=== PATIENT | female | born 1975 | race Caucasian/White ===

== ENCOUNTER 2016-08-13 22:15 | Emergency (ER) | payer SELFPAY ==
[~2016-08-13 22:15] MED LIST: FLUO40CA9 PO; RISP4TAB35 PO
[2016-08-13 22:18] VITALS: BP 160/56
--- NOTE | 2016-08-13 22:37 | PHYS DOC ---
Past Medical History Past Medical History: Bipolar, GERD, Schizophrenia Additional Past Medical Histor: PTSD Past Surgical History: Tubal ligation Alcohol Use: None Drug Use: Marijuana, Methadone Social History Narrative: LAST USED METH X 3 DAYS AGO Adult General Chief Complaint Chief Complaint: MULTIPLE COMPLAINTS [facility] HPI Patient is a 41 year old female presents emergency department stating that she' s had a 3 day history of cough congestion with right sided facial pressure. Patient states that her temperature was 102.9 at home in which she had taken either Tylenol or ibuprofen for 2 hours prior to arrival. States that she has been coughing up yellow mucus secretions. She states that she short of air whenever she is walking. Patient's heart rate at the current time is 103. Patient is afebrile here in the emergency department. Patient does has a smoking history. Review of Systems Review of Systems Constitutional: hx fever Eyes: Denies change in visual acuity, redness, or eye pain [] HENT: nasal congestion and sore throat [] Respiratory: cough and shortness of breath [] Cardiovascular: No additional information not addressed in HPI [] GI: Denies abdominal pain, nausea, vomiting, bloody stools or diarrhea [] : Denies dysuria or hematuria [] Musculoskeletal: Denies back pain or joint pain [] Integument: Denies rash or skin lesions [] Neurologic: Denies headache, focal weakness or sensory changes [] Allergies Allergies Allergies Coded Allergies Type Severity Reaction Last Updated Verified No Known Drug Allergies 07/03/13 No Physical Exam Physical Exam Constitutional: Well developed, well nourished, no acute distress, non-toxic appearance. [] HENT: Normocephalic, atraumatic, bilateral external ears normal, oropharynx moist, no oral exudates, nose normal. Bilateral TM normal, throat with redness noted, no erythematous noted. No exudate noted. Patient with right frontal and maxillary sinus tenderness noted Eyes: PERRLA, EOMI, conjunctiva normal, no discharge. [] Neck: Normal range of motion, no tenderness, supple, no stridor. [] Cardiovascular:Heart rate regular rhythm, no murmur [] Lungs & Thorax: Bilateral breath sounds clear to auscultation [] Skin: Warm, dry, no erythema, no rash. [] Back: No tenderness Extremities: No tenderness, no cyanosis, no clubbing, ROM intact, no edema. [] Neurologic: Alert and oriented X 3, normal motor function, normal sensory function, no focal deficits noted. [] Psychologic: Affect normal, judgement normal, mood normal. [] Current Patient Data Vital Signs Vital Signs Date Time Temp Pulse Resp B/P Pulse Ox O2 Delivery O2 Flow Rate FiO2 08/13/16 22:18 98.8 106 22 100 Room Air 98.8 Lab Values Laboratory Tests Test 08/13/16 22:30 Influenza Type A Antigen Negative (NEGATIVE) Influenza Type B Antigen Negative (NEGATIVE) EKG EKG [] Radiology/Procedures Radiology/Procedures [] Course & Med Decision Making Course & Med Decision Making Pertinent Labs and Imaging studies reviewed. (See chart for details) Influenza swabs are negative. Patient will be treated for sinusitis infection. Patient will be provided with a prescription for prednisone to help with shortness of air difficulty breathing as she has been having a cough that is productive. She'll be provided with Augmentin. Signs and symptoms to return back to emergency department as been provided. Patient will be discharged home in stable condition. [] Dragon Disclaimer Dragon Disclaimer This electronic medical record was generated, in whole or in part, using a voice recognition dictation system. Departure Departure Impression: Primary Impression: Sinusitis Disposition: 01 HOME, SELF-CARE Condition: STABLE Referrals: UNKNOWN PCP NAME (PCP) Patient Instructions: Sinusitis, [id number] Additional Instructions: Activity as tolerated. Medications as prescribed. Drink plenty of fluids. Follow-up the primary care physician in the next 3-5 days. Return back to emergency prior signs and symptoms of become worse. Scripts Prednisone 20 Mg [id number] Mg PO DAILY #14 TAB Prov:JIMMY BRADY APRN 08/13/16 Amoxicillin/Potassium Clav (Augmentin 875-125 Tablet)1 Each Tablet1 Tab PO BID # 20 TAB Prov:JIMMY BRADY APRN 08/13/16 JIMMY BRADY APRN August 13, 2016 22:37
[2016-08-13 22:56] LABS: OBC FLU VALID
[2016-08-13] MEDS ORDERED: PRED20TA PO (23:01)
[2016-08-13] MEDS ORDERED: AMOX1TAB61 PO (23:01)
== END 2016-08-13 23:10 | disposition home or self-care (01) ==
LOC: ER 22:15
DX: J32.9 Chronic sinusitis, unspecified (principal); F20.9 Schizophrenia, unspecified; F43.10 Post-traumatic stress disorder, unspecified; K21.9 Gastro-esophageal reflux disease without esophagitis; F31.9 Bipolar disorder, unspecified; F12.10 Cannabis abuse, uncomplicated; F11.10 Opioid abuse, uncomplicated; Z87.891 Personal history of nicotine dependence
CPT/HCPCS: 87804; 99284

== ENCOUNTER 2016-10-31 13:25 | Emergency (ER) | payer SELFPAY ==
[~2016-10-31] VITALS: Ht 167.6 cm; Wt 72.6 kg
[~2016-10-31 13:25] MED LIST changes: +AMOX1TAB61 PO; +PRED20TA PO
[2016-10-31 13:47] VITALS: BP 142/86
[2016-10-31] MEDS ORDERED: PERM60CR12 TP (14:18)
[2016-10-31] MEDS ORDERED: PRED20TA PO (14:18)
--- NOTE | 2016-10-31 14:19 | PHYS DOC ---
Past Medical History Past Medical History: Bipolar, GERD, Schizophrenia Additional Past Medical Histor: PTSD Past Surgical History: Tubal ligation Alcohol Use: Occasionally Drug Use: Marijuana, Methadone, Methamphetamine Adult General Chief Complaint Chief Complaint: SKIN RASH/ABSCESS [facility] HPI Patient is a 41 year old female presents to emergency department stating that she's had this rash on her arms for approximately a week. She states she had been placing antibiotic soap on the area in which seemed to have gone away but now its back. She states that they've been having bedbugs in their home in which they have been having problems getting rid of it. She denies any fever, chills or any nausea vomiting. She denies any drainage coming from the sites. Review of Systems Review of Systems Constitutional: Denies fever or chills [] Eyes: Denies change in visual acuity, redness, or eye pain [] HENT: Denies nasal congestion or sore throat [] Respiratory: Denies cough or shortness of breath [] Cardiovascular: No additional information not addressed in HPI [] GI: Denies abdominal pain, nausea, vomiting, bloody stools or diarrhea [] : Denies dysuria or hematuria [] Musculoskeletal: Denies back pain or joint pain [] Integument: rash denies skin lesions [] Neurologic: Denies headache, focal weakness or sensory changes [] Endocrine: Denies polyuria or polydipsia [] Allergies Allergies Allergies Coded Allergies Type Severity Reaction Last Updated Verified No Known Drug Allergies 07/03/13 No Physical Exam Physical Exam Constitutional: Well developed, well nourished, no acute distress, non-toxic appearance. [] HENT: Normocephalic, atraumatic, bilateral external ears normal, oropharynx moist, no oral exudates, nose normal. [] Eyes: PERRLA, EOMI, conjunctiva normal, no discharge. [] Neck: Normal range of motion, no tenderness, supple, no stridor. [] Cardiovascular:Heart rate regular rhythm Lungs & Thorax: No respiratory distress noted Skin: Warm, dry, no erythema, patient with a raised rash noted throughout the bilateral upper extremities. The areas appear to be a pinpoint type white rash. Back: No tenderness Extremities: No tenderness, no cyanosis, no clubbing, ROM intact, no edema. [] Neurologic: Alert and oriented X 3, normal motor function, normal sensory function, no focal deficits noted. [] Psychologic: Affect normal, judgement normal, mood normal. [] Current Patient Data Vital Signs Vital Signs Date Time Temp Pulse Resp B/P (MAP) Pulse Ox O2 Delivery O2 Flow Rate FiO2 10/31/16 13:47 99.3 103 18 97 Room Air 99.3 EKG EKG [] Radiology/Procedures Radiology/Procedures [] Course & Med Decision Making Course & Med Decision Making Pertinent Labs and Imaging studies reviewed. (See chart for details) Patient was encouraged to keep the areas clean and dry wash it with soap and water. She will also be provided with a prescription for permethrin cream in which she was instructed will cause the areas to look worse before they start looking better. Also instructed patient to keep the areas clean and dry. Also instructed patient to use the cream on a weekly basis as needed. Also spoke with patient regards to washing all of the bed linens and everything in hot water. Patient agrees with discharge instructions treatment regimens and follow- up recommendations. Signs and symptoms to return back to emergency department as been provided. [] Dragon Disclaimer Dragon Disclaimer This electronic medical record was generated, in whole or in part, using a voice recognition dictation system. Departure Departure Impression: Primary Impression: Contact dermatitis Disposition: 01 HOME, SELF-CARE Condition: STABLE Referrals: UNKNOWN PCP NAME (PCP) Patient Instructions: Bedbugs, [id number] Additional Instructions: Keep the areas clean and dry. Clean the sites with soap and water. Make sure you wash all urine and it in hot water. Medication as prescribed. Follow-up to primary care physician next 3-5 days. Return back to emergency prior signs symptoms of become worse. Scripts Prednisone (PREDNISONE) 20 Mg Tablet 40 MG PO DAILY, #14 TAB Prov: JIMMY BRADY APRN 10/31/16 Permethrin (PERMETHRIN) 60 Gm Cream..g. 1 ERICA TP ONCE, #60 GM 1 Refill Prov: JIMMY BRADY APRN 10/31/16 JIMMY BRADY APRN Oct 31, 2016 14:19
[2016-10-31] MEDS ORDERED: CLOB118S TP (14:23)
== END 2016-10-31 14:29 | disposition home or self-care (01) ==
LOC: ER 13:25
DX: L25.9 Unspecified contact dermatitis, unspecified cause (principal); K21.9 Gastro-esophageal reflux disease without esophagitis; F20.9 Schizophrenia, unspecified; F43.10 Post-traumatic stress disorder, unspecified; F31.9 Bipolar disorder, unspecified; F12.10 Cannabis abuse, uncomplicated; F11.10 Opioid abuse, uncomplicated; F15.10 Other stimulant abuse, uncomplicated; Z98.51 Tubal ligation status
CPT/HCPCS: 99283

== ENCOUNTER 2016-11-25 01:25 | Inpatient (IN) | payer SELFPAY ==
[~2016-11-25] VITALS: Ht 167.6 cm; Wt 75.8 kg
[2016-11-25] VITALS (27 sets, daily range): BP systolic 66–122; BP diastolic 32–77
[~2016-11-25 01:25] MED LIST changes: +CLOB118S TP; +PERM60CR12 TP
[2016-11-25] MEDS ORDERED: IV NORMAL SALINE 1000ML BAG 1,000 ML IV ONE ×3 (02:15→15:00)
[2016-11-25] MEDS ORDERED: ONDANSETRON PF 4 MG/2 ML VIAL. IV ONE (02:15)
[2016-11-25 02:54] LABS: BILIRUBIN,URINE NEGATIVE (NEG); GLUCOSE,URINE NEGATIVE (NEG); NITRITE,URINE NEGATIVE (NEG); PH,URINE 5.5; PROTEIN,URINE NEGATIVE (NEG-TRACE); UROBILINOGEN,URINE 0.2 mg/dL (0.2 mg/dL)
[2016-11-25 02:55] LABS: BASO % 0 % (0-3); EOS % 0 % (0-3); HEMATOCRIT 31.8 % (36.0-47.0); HEMOGLOBIN 10.2 g/dL (12.0-15.5); LYMPH # 0.6 x10^3/uL (1.0-4.8); LYMPH % 28 % (24-48); MEAN CORPUSCULAR HEMOGLOBIN 23 pg (25-35); MEAN CORPUSCULAR HGB CONC 32 g/dL (31-37); MEAN CORPUSCULAR VOLUME 72 fL (79-100); MONO % 1 % (0-9); NEUT % 71 % (31-73); PLATELET COUNT 175 x10^3/uL (140-400); RED BLOOD COUNT 4.45 x10^6/uL (3.50-5.40); WHITE BLOOD COUNT 2.3 x10^3/uL (4.0-11.0)
[2016-11-25 03:19] LABS: RBC,URINE OCC /HPF (0-2)
[2016-11-25 03:20] LABS: BACTERIA,URINE 0 /HPF (0-FEW); SQUAMOUS EPITHELIAL CELL,UR FEW /LPF; WBC,URINE OCC /HPF (0-4)
[2016-11-25 03:27] LABS: CALCIUM 8.6 mg/dL (8.5-10.1); CREATININE 1.1 mg/dL (0.6-1.0); POTASSIUM 3.1 mmol/L (3.5-5.1)
[2016-11-25 03:30] LABS: BARBITURATES NEG (NEG); BENZODIAZEPINES NEG (NEG); CANNABINOIDS NEG (NEG); COCAINE NEG (NEG); METHADONE NEG (NEG); OPIATES NEG (NEG); PHENCYCLIDINE NEG (NEG)
[2016-11-25 03:32] LABS: ALBUMIN 3.4 g/dL (3.4-5.0); ALBUMIN/GLOBULIN RATIO 0.8 (1.0-1.7); TOTAL BILIRUBIN 0.5 mg/dL (0.2-1.0); TOTAL PROTEIN 7.6 g/dL (6.4-8.2)
[2016-11-25] MEDS ORDERED: cefTRIAXone IM 1 GM VIAL IM ONE (04:37)
[2016-11-25 04:42] LABS: MICROCYTOSIS SLIGHT; PLT ESTIMATE ADEQUATE (ADEQUATE); POLYCHROMASIA SLIGHT
[2016-11-25] MEDS ORDERED: HYDROmorphone 2 MG/ML VIAL IV ONE (04:45)
[2016-11-25] MEDS ORDERED: KETOROLAC 15 MG/ML VIAL. IV ONE (04:45)
[2016-11-25] MEDS ORDERED: ACETAMINOPHEN 325 MG TABLET. PO ONE (04:45)
[2016-11-25] MEDS ORDERED: CONTRAST GIVEN MC PRN (05:00)
[2016-11-25] MEDS ORDERED: IOHEXOL 300 MG/ML 75 ML VIAL IV ONE (05:00)
[2016-11-25 05:02] LABS: NEG OBC UR NEG; POS OBC UR POS
--- NOTE | 2016-11-25 05:54 | RAD ---
EXAM: Abdomen and pelvis CT with intravenous contrast. HISTORY: Abdominal pain. TECHNIQUE: Computed tomographic images of the abdomen and pelvis were obtained following the administration of 60 cc of Omni 300 intravenous contrast. Multiplanar reformatting was performed. PQRS compliance statement: One or more of the following individualized dose reduction techniques were utilized for this examination: 1. Automated exposure control 2. Adjustment of the mA and/or kV according to patient size 3. Use of iterative reconstruction technique COMPARISON: None. FINDINGS: The lung bases demonstrate no acute finding. The distal esophagus is mildly dilated and fluid-filled. The liver, spleen, gallbladder, pancreas, adrenal glands and bilateral kidneys demonstrate no focal abnormality. The GI tract demonstrates no dilated bowel loops to suggest obstruction. Appendix is normal in caliber in the right lower quadrant. The colon is mostly decompressed and not well evaluated. Some small bowel loops are fluid-filled although not dilated. The urinary bladder is grossly unremarkable. Uterus and bilateral adnexa demonstrate no focal abnormality. No intra-abdominal or pelvic free fluid, free air or significant lymphadenopathy is seen. Aorta is normal in caliber, with scattered atherosclerotic calcifications. Overlying soft tissues and visualized osseous structures demonstrate no acute or suspicious finding. IMPRESSION: No acute intra-abdominal or pelvic process. A few fluid-filled small bowel loops are present, not dilated. Findings may represent enteritis. Distal esophagus is mildly dilated and fluid-filled. Electronically signed by: Thi Mckeon MD (11/25/2016 5:50 AM) [facility]
--- NOTE | 2016-11-25 06:03 | PHYS DOC ---
Past Medical History Past Medical History: Asthma, Bipolar, GERD, Schizophrenia Additional Past Medical Histor: PTSD, GALLSTONES Past Surgical History: Tubal ligation Alcohol Use: Occasionally Drug Use: Marijuana, Methadone, Methamphetamine Social History Narrative: PT REPORTS USING METH TODAY. Adult General Chief Complaint Chief Complaint: LOWER BACK PAIN OR INJURY HPI HPI Patient is a 41 year old female who presents here today initially for lower back pain that occurred when she was bending over she felt a pop to her back and was having severe pain. Patient's initial evaluation the ER was significant for tenderness to palpation to her lower back. All she was in the ER the patient started having multiple episodes of vomiting. Patient had an episode of severe diarrhea with some blood-tinged stool. Patient was reevaluated and her room and was found to have a temperature 102.4 orally. Patient is currently complaining of diffuse abdominal discomfort. Patient complains of dysuria. Patient playing of nausea vomiting and diarrhea. She denies any cough cold runny nose. Patient denies any sore throat. Patient has any rash. Patient has a history significant for methamphetamine abuse. Last time she used was yesterday. Patient denies any rash tenderness swelling at the injection sites. Patient has no history of hypertension or diabetes. Patient has no liver longer kidney problems that she is aware of. Patient reports that she did have gallstones in the past however she has had no abdominal surgeries. Patient's appendix and gallbladder are still intact. Patient's last menstrual period was approximately one month ago however she reports she has episodes where she starts. Bleeding vaginally for several days after having sex. Patient reports that she started having some vaginal bleeding 4 days ago. Her last sexual intercourse approximately one week ago. Review of systems: Constitutional: Positive fever Eyes: Denies change in visual acuity, redness, or eye pain HENT: Denies nasal congestion or sore throat All other review systems are negative except as documented in the history of present illness portion. Physical exam: Temperature 102.4 Constitutional: Well developed, well nourished, no acute distress, non-toxic appearance. HENT: Normocephalic, atraumatic, bilateral external ears normal, Eyes: EOMI, conjunctiva normal, no discharge. Neck: Normal range of motion, no tenderness, supple, no stridor. No nuchal rigidity, no photophobia, no Kernig's or Brudzinski sign. Cardiovascular: Regular rate and rhythm. Patient tachycardic to 120. Lungs & Thorax: Bilateral breath sounds clear to auscultation no wheezing rales or rhonchi Abdomen: Bowel sounds normal, soft, diffuse tenderness to palpation greatest in the right lower quadrant. Patient has normal active bowel sounds. Patient does not present with signs or symptoms consistent with an acute surgical abdomen. Skin: Warm, dry, no erythema, no rash. No lesions. No erythema or fluctuance or drainage from her injection sites in her antecubital fossa bilaterally. Back: Tenderness to palpation diffusely throughout her back. No point bony tenderness. No tenderness in her T-spine and L-spine are C-spine., no CVA tenderness. Extremities: ROM intact, no edema. Neurologic: Alert and oriented X 3, normal motor function, normal sensory function, no focal deficits noted. Non-focal neuro exam. Patient's and bleeding the ER without any sensory deficits. Patient's motor strength is 5 out of 5 upper or lower 70s. Patient has no loss of bowel or bladder function. Patient has normal rectal tone. Rectal exam was brown stool with streaks of blood. Patient appears to be having vaginal bleeding. Psychologic: Affect normal, judgement normal, mood normal. Patient's ER course is significant for multiple episodes of vomiting. Patient's chief complaint has progressed from lower back pain secondary to bending over and felt a pop to the patient with fever or abdominal pain and a WBC count of 2.5. Patient had nausea vomiting and diarrhea which also is a new symptom for her which she did not have prior to coming to the ER. While in the ER the patient was given Tylenol, Toradol, Dilaudid and IV fluids. Patient had a CT scan of her abdomen and pelvis with IV contrast to further assess her abdominal pain. Patient reports she feels much improved after the initial round of antiemetics and pain medicines and IV fluids in the ER. Assessment and plan 1. Abdominal pain with fever. Etiology unclear. Patient will need to be admitted for further evaluation. Patient's temperature in the ER patient was initially afebrile however her current temperature is 102.4 despite antiemetics. Patient has a white count of 2.5. Patient's CT scanner abdomen pelvis is pending at this time. Given the patient's abdominal pain and fever and persistent nausea vomiting and feel the patient will need to be admitted to the hospital for further evaluation and monitoring and hydration. 2. Leukopenia. Patient has a relative leukopenia given her fever of 102.5. Patient denies any history of HIV. 3. Vaginal bleeding. Patient reports that she has episodes of vaginal bleeding intermittently over the last several months. Patient reports that occurs after sexual activity. This episode started approximately 4 days ago however she reports no sexual activity for approximately one and half weeks. 4. Methamphetamine abuse patient does not have any evidence of abscesses or cellulitis at the site of injection. Patient has back pain however this seems to be an acute issue and does not appear to be related to her methamphetamine injection. Patient has no point bony tenderness to her C-spine T-spine or L- spine. Although likely I do not think that epidural abscess is the cause of her fever at this time. Patient's fever started while she was here in the ER and her greatest discomfort is in her abdomen. I believe that given her nausea vomiting diarrhea abdominal pain that further workup regarding epidural abscess can be held off at this time. Patient's CT scan revealed no acute intra-abdominal or pelvic process. A few fluid-filled small bowel loops are present not dilated findings may repeat an enteritis. Distal esophagus dilated and fluid-filled. Current Medications Current Medications Current Medications Medications (Trade) Dose Ordered Sig/Bebe Start Time Stop Time Status Last Admin Dose Admin Acetaminophen (Tylenol) 650 mg 1X ONCE 11/25/16 04:45 11/25/16 04:46 DC 11/25/16 04:53 650 MG Ceftriaxone Sodium (Rocephin Im) 1 gm STK-MED ONCE 11/25/16 04:37 11/25/16 04:38 DC Hydromorphone HCl (Dilaudid) 1 mg 1X ONCE 11/25/16 04:45 11/25/16 04:46 DC 11/25/16 04:52 1 MG Info (Do NOT chart on this entry -- for MONITORING) 1 each PRN DAILY PRN 11/25/16 05:00 11/27/16 04:59 Iohexol (Omnipaque 300 Mg/ml) 75 ml 1X ONCE 11/25/16 05:00 11/25/16 05:01 DC 11/25/16 05:26 60 ML Ketorolac Tromethamine (Toradol) 15 mg 1X ONCE 11/25/16 04:45 11/25/16 04:46 DC 11/25/16 04:52 15 MG Ondansetron HCl (Zofran) 4 mg 1X ONCE 11/25/16 02:15 11/25/16 02:17 DC 11/25/16 02:52 4 MG Sodium Chloride 1,000 ml @ 1,000 mls/hr 1X ONCE 11/25/16 04:45 11/25/16 05:44 11/25/16 04:53 1,000 MLS/HR Allergies Allergies Allergies Coded Allergies Type Severity Reaction Last Updated Verified No Known Drug Allergies 07/03/13 No Current Patient Data Vital Signs Vital Signs Date Time Temp Pulse Resp B/P (MAP) Pulse Ox O2 Delivery O2 Flow Rate FiO2 11/25/16 05:11 131 24 108/60 (76) 98 Room Air 11/25/16 04:30 101.1 101.1 Lab Values Laboratory Tests Test 11/25/16 02:30 11/25/16 02:40 11/25/16 03:30 11/25/16 04:50 Urine Opiates Screen Neg (NEG) Urine Methadone Screen Neg (NEG) Urine Barbiturates Neg (NEG) Urine Phencyclidine Screen Neg (NEG) Urine Amphetamine/Methamphetamine Neg (NEG) Urine Benzodiazepines Screen Neg (NEG) Urine Cocaine Screen Neg (NEG) Urine Cannabinoids Screen Neg (NEG) Urine Ethyl Alcohol Neg (NEG) White Blood Count 2.3 x10^3/uL (4.0-11.0) L Red Blood Count 4.45 x10^6/uL (3.50-5.40) Hemoglobin 10.2 g/dL (12.0-15.5) L Hematocrit 31.8 % (36.0-47.0) L Mean Corpuscular Volume 72 fL (79-100) L Mean Corpuscular Hemoglobin 23 pg (25-35) L Mean Corpuscular Hemoglobin Concent 32 g/dL (31-37) Red Cell Distribution Width 17.0 % (11.5-14.5) H Platelet Count 175 x10^3/uL (140-400) Neutrophils (%) (Auto) 71 % (31-73) Lymphocytes (%) (Auto) 28 % (24-48) Monocytes (%) (Auto) 1 % (0-9) Eosinophils (%) (Auto) 0 % (0-3) Basophils (%) (Auto) 0 % (0-3) Neutrophils # (Auto) 1.6 x10^3uL (1.8-7.7) L Lymphocytes # (Auto) 0.6 x10^3/uL (1.0-4.8) L Monocytes # (Auto) 0.0 x10^3/uL (0.0-1.1) Eosinophils # (Auto) 0.0 x10^3/uL (0.0-0.7) Basophils # (Auto) 0.0 x10^3/uL (0.0-0.2) Platelet Estimate Adequate (ADEQUATE) Polychromasia Slight Microcytosis Slight Macrocytosis Slight Urine Collection Type U cath Urine Color Yellow Urine Clarity Clear Urine pH 5.5 Urine Specific [place] 1.010 Urine Protein Negative mg/dL (NEG-TRACE) Urine Glucose (UA) Negative mg/dL (NEG) Urine Ketones (Stick) Negative mg/dL (NEG) Urine Blood Trace (NEG) Urine Nitrite Negative (NEG) Urine Bilirubin Negative (NEG) Urine Urobilinogen Dipstick 0.2 mg/dL (0.2 mg/dL) Urine Leukocyte Esterase Negative (NEG) Urine RBC Occ /HPF (0-2) Urine WBC Occ /HPF (0-4) Urine Squamous Epithelial Cells Few /LPF Urine Bacteria 0 /HPF (0-FEW) Sodium Level 143 mmol/L (136-145) Potassium Level 3.1 mmol/L (3.5-5.1) L Chloride Level 105 mmol/L (98-107) Carbon Dioxide Level 21 mmol/L (21-32) Anion Gap 17 (6-14) H Blood Urea Nitrogen 12 mg/dL (7-20) Creatinine 1.1 mg/dL (0.6-1.0) H Estimated GFR (Cockcroft-Gault) 55.0 BUN/Creatinine Ratio 11 (6-20) Glucose Level 90 mg/dL (70-99) Calcium Level 8.6 mg/dL (8.5-10.1) Total Bilirubin 0.5 mg/dL (0.2-1.0) Aspartate Amino Transferase (AST) 94 U/L (15-37) H Alanine Aminotransferase (ALT) 63 U/L (14-59) H Alkaline Phosphatase 178 U/L (46-116) H Total Protein 7.6 g/dL (6.4-8.2) Albumin 3.4 g/dL (3.4-5.0) Albumin/Globulin Ratio 0.8 (1.0-1.7) L Lipase 133 U/L (73-393) Ethyl Alcohol Level < 10 mg/dL (0-10) Urine Test Negative (NEG) Lactic Acid Level 2.6 mmol/L (0.4-2.0) H Laboratory Tests 11/25/16 02:40 Laboratory Tests 11/25/16 02:40 EKG EKG [] Radiology/Procedures Radiology/Procedures [] Course & Med Decision Making Course & Med Decision Making Pertinent Labs and Imaging studies reviewed. (See chart for details) [] Dragon Disclaimer Dragon Disclaimer This electronic medical record was generated, in whole or in part, using a voice recognition dictation system. Departure Departure Impression: Primary Impression: Fever Additional Impressions: Nausea vomiting and diarrhea Dehydration Abdominal pain Lower back pain Methamphetamine abuse Disposition: 01 HOME, SELF-CARE Condition: STABLE Referrals: NO PCP (PCP) Problem Qualifiers AMIE LEYVA MD Nov 25, 2016 06:03
[2016-11-25] MEDS: IV NORMAL SALINE 1000ML BAG 1,000 ML IV SCH ×5 (06:15→17:45)
[2016-11-25] MEDS ORDERED: MORPHINE SULFATE 4 MG/ML DISP.SYRIN. IV PRN (06:15)
[2016-11-25] MEDS ORDERED: ONDANSETRON PF 4 MG/2 ML VIAL. IV PRN ×2 (06:15→09:37)
[2016-11-25] MEDS ORDERED: ACETAMINOPHEN 325 MG TABLET. PO PRN (06:15)
[2016-11-25] MEDS ORDERED: MULTIVIT INFUSN,ADULT 4,VIT K 10 ML, FOLIC ACID 1 MG, THIAMINE 100 MG in IV NORMAL SALI... IV ONE (06:30)
[2016-11-25] MEDS ORDERED: LOPERAMIDE 2 MG CAPSULE PO PRN (09:45)
[2016-11-25] MEDS ORDERED: CLOBETASOL PROPIONATE TP SCH (09:45)
[2016-11-25 10:00] LABS: % SAT IRON 4 % (15-34); IRON,SERUM 11 ug/dL (50-170)
[2016-11-25] MEDS: predniSONE 20 MG TABLET PO SCH (10:55)
[2016-11-25] MEDS ORDERED: NOREPINEPHRIN PREMIX 250 ML IV PRN (15:00)
[2016-11-25] MEDS ORDERED: PROCHLORPERAZINE 10 MG/2 ML VIAL. IV PRN (15:15)
--- NOTE | 2016-11-25 15:18 | PDOC1 ---
History and Physical Date of Admission Date of Admission DATE: 11/25/16 TIME: 15:06 Identification/Chief Complaint Chief Complaint abd pain,diarrhea, vomiting Problems: Source Source: Caregiver, Chart review, Patient History of Present Illness History of Present Illness 41 y.o female, who has no PCP, poor ff up of her dx breast CA 3 yrs ago ([facility]), never came back for work up hence unknown staging, came to ER last night bec of persistent vomiting, abd pain, mostly epigastric, diarrhea, liquidy , no blood,started few days ago,. Deneis recent tavel or eating suspicious food , CREat 1.1 hgb low, microcytic, BP is low, recalcitrant to IVF Systolic 60-80s , HR tachy,was initially 130s now 103m CLEARLy uncomfortable,and septic, Temp 99. about to vomit,. LActate was 2 plus on admit, now 1.6, CT scan abd shows enteritis findings, no abx started. Also tells us vag bleeding, not on any mirena etc, was imprisoned before. USes methemphetamines, admits to RN that she uses other people's schiz meds bec of her bipolar and schiz hx. A lot of sxs, all over the place, not one clear defining sx Past Medical History GI: GERD Psych: Anxiety, Addictions, Bipolar, Schizophrenia Past Surgical History Past Surgical History: No pertinent history Family History Family History: Family History Unknown Social History Smoke: # pack years ALCOHOL: none Drugs: Other (methamphetamine) Current Problem List Problem List Problems Medical Problems: (1) Abdominal pain Status: Acute (2) Dehydration Status: Acute (3) Fever Status: Acute (4) Lower back pain Status: Acute (5) Methamphetamine abuse Status: Acute (6) Nausea vomiting and diarrhea Status: Acute Problems: Current Medications Current Medications Current Medications Ondansetron HCl (Zofran) 4 mg 1X ONCE IV Last administered on 11/25/16 02:52 ; Start 11/25/16 at 02:15; Stop 11/25/16 at 02:17; Status DC Sodium Chloride 1,000 ml @ 1,000 mls/hr 1X ONCE IV Last administered on 02:52; Start 11/25/16 at 02:15; Stop 11/25/16 at 03:14; Status DC Ketorolac Tromethamine (Toradol) 15 mg 1X ONCE IV Last administered on 04:52; Start 11/25/16 at 04:45; Stop 11/25/16 at 04:46; Status DC Acetaminophen (Tylenol) 650 mg 1X ONCE PO Last administered on 11/25/16 04:53 ; Start 11/25/16 at 04:45; Stop 11/25/16 at 04:46; Status DC Hydromorphone HCl (Dilaudid) 1 mg 1X ONCE IV Last administered on 11/25/16 04 :52; Start 11/25/16 at 04:45; Stop 11/25/16 at 04:46; Status DC Sodium Chloride 1,000 ml @ 1,000 mls/hr 1X ONCE IV Last administered on 04:53; Start 11/25/16 at 04:45; Stop 11/25/16 at 05:44; Status DC Ceftriaxone Sodium 50 ml @ 100 mls/hr 1X ONCE IV Last administered on 04:53; Start 11/25/16 at 04:45; Stop 11/25/16 at 05:14; Status DC Iohexol (Omnipaque 300 Mg/ml) 75 ml 1X ONCE IV Last administered on 11/25/16 05:26; Start 11/25/16 at 05:00; Stop 11/25/16 at 05:01; Status DC Ceftriaxone Sodium (Rocephin Im) 1 gm STK-MED ONCE IM ; Start 11/25/16 at 04:37 ; Stop 11/25/16 at 04:38; Status DC Info (Do NOT chart on this entry -- for MONITORING) 1 each PRN DAILY PRN MC SEE COMMENTS; Start 11/25/16 at 05:00; Stop 11/27/16 at 04:59 Sodium Chloride 1,000 ml @ 2,790 mls/hr Q22M IV ; Start 11/25/16 at 06:15; Stop 11/25/16 at 07:14; Status DC Ondansetron HCl (Zofran) 4 mg PRN Q8HRS PRN IV NAUSEA/VOMITING; Start 11/25/16 at 06:15; Stop 11/25/16 at 09:40; Status DC Morphine Sulfate 4 mg PRN Q2HR PRN IV PAIN; Start 11/25/16 at 06:15; Stop 11/26 at 06:14 Acetaminophen (Tylenol) 650 mg PRN Q4HRS PRN PO FEVER Last administered on 11/25 07:48; Start 11/25/16 at 06:15; Stop 11/26/16 at 06:14 Multivitamins 10 ml/Folic Acid 1 mg/Thiamine HCl 100 mg/Sodium Chloride 1,011.2 ml @ 1,000 mls/ hr 1X ONCE IV Last administered on 11/25/16 06:20; Start at 06:30; Stop 11/25/16 at 07:30; Status DC Ondansetron HCl (Zofran) 4 mg PRN Q6HRS PRN IV NAUSEA/VOMITING; Start 11/25/16 at 09:37; Stop 11/26/16 at 09:36 Loperamide HCl (Imodium) 2 mg PRN Q15MIN PRN PO DIARRHEA; Start 11/25/16 at 09: 45 Levofloxacin/ Dextrose 100 ml @ 100 mls/hr Q24H IV Last administered on 10:55; Start 11/25/16 at 10:00 Permethrin (Elimite) 1 malik DAILY TP ; Start 11/26/16 at 09:00; Status UNV Prednisone (Prednisone) 40 mg DAILY PO Last administered on 11/25/16 10:55; Start 11/25/16 at 10:00 Non-Formulary Medication 118 ml 1X TP ; Start 11/25/16 at 09:45; Status UNV Sodium Chloride 1,000 ml @ 125 mls/hr Q8H IV Last administered on 11/25/16 10 :55; Start 11/25/16 at 09:45 Sodium Chloride 1,000 ml @ 1,000 mls/hr 1X ONCE IV Last administered on 15:05; Start 11/25/16 at 15:00; Stop 11/25/16 at 15:59 Active Scripts Active Clobex (Clobetasol Propionate) 118 Ml Shampoo 118 Ml TP 1X Prednisone 20 Mg Tablet 40 Mg PO DAILY Permethrin 60 Gm Cream..g. 1 Malik TP ONCE Prednisone 20 Mg Tablet 40 Mg PO DAILY Augmentin 875-125 Tablet (Amoxicillin/Potassium Clav) 1 Each Tablet 1 Tab PO BID Allergies Allergies: Coded Allergies: No Known Drug Allergies (Unverified , 07/03/13) ROS Review of System limited - Low BP, uncomfortable, about to vomit Physical Exam General: moderate distress, Other (uncomfortable) HEENT: Atraumatic, PERRLA Lungs: Clear to auscultation, Normal air movement Heart: RRR, no gallops, no murmurs Cardiovascular: S1, S2 Breasts: Normal, Rt breast nml w/o mass, Lt breast nml w/o mass, Nipples normal Abdomen: Soft, Other (tenderness to epigastric area) Rectal Exam: not examined PELVIC: Nml ext genitalia Extremities: No clubbing, No cyanosis, No edema, Normal pulses, No tenderness/ swelling Skin: No rashes, No breakdown, No significant lesion Neuro: Normal gait, Normal speech, Strength at 5/5 X4 ext, Normal tone, Sensation intact, Cranial nerves 3-12 NL, Reflexes 2+ Psych/Mental Status: Mental status NL, Mood NL Vitals Vitals Vital Signs Date Time Temp Pulse Resp B/P (MAP) Pulse Ox O2 Delivery O2 Flow Rate FiO2 11/25/16 14:53 99.3 103 24 87/32 (50) Nasal Cannula 2.0 99.3 11/25/16 14:49 100 Labs Labs Laboratory Tests Test 11/25/16 02:30 11/25/16 02:40 11/25/16 03:30 11/25/16 04:50 Urine Opiates Screen Neg (NEG) Urine Methadone Screen Neg (NEG) Urine Barbiturates Neg (NEG) Urine Phencyclidine Screen Neg (NEG) Urine Amphetamine/Methamphetamine Neg (NEG) Urine Benzodiazepines Screen Neg (NEG) Urine Cocaine Screen Neg (NEG) Urine Cannabinoids Screen Neg (NEG) Urine Ethyl Alcohol Neg (NEG) White Blood Count 2.3 x10^3/uL (4.0-11.0) Red Blood Count 4.45 x10^6/uL (3.50-5.40) Hemoglobin 10.2 g/dL (12.0-15.5) Hematocrit 31.8 % (36.0-47.0) Mean Corpuscular Volume 72 fL (79-100) Mean Corpuscular Hemoglobin 23 pg (25-35) Mean Corpuscular Hemoglobin Concent 32 g/dL (31-37) Red Cell Distribution Width 17.0 % (11.5-14.5) Platelet Count 175 x10^3/uL (140-400) Neutrophils (%) (Auto) 71 % (31-73) Lymphocytes (%) (Auto) 28 % (24-48) Monocytes (%) (Auto) 1 % (0-9) Eosinophils (%) (Auto) 0 % (0-3) Basophils (%) (Auto) 0 % (0-3) Neutrophils # (Auto) 1.6 x10^3uL (1.8-7.7) Lymphocytes # (Auto) 0.6 x10^3/uL (1.0-4.8) Monocytes # (Auto) 0.0 x10^3/uL (0.0-1.1) Eosinophils # (Auto) 0.0 x10^3/uL (0.0-0.7) Basophils # (Auto) 0.0 x10^3/uL (0.0-0.2) Platelet Estimate Adequate (ADEQUATE) Polychromasia Slight Microcytosis Slight Macrocytosis Slight Urine Collection Type U cath Urine Color Yellow Urine Clarity Clear Urine pH 5.5 Urine Specific Mather 1.010 Urine Protein Negative mg/dL (NEG-TRACE) Urine Glucose (UA) Negative mg/dL (NEG) Urine Ketones (Stick) Negative mg/dL (NEG) Urine Blood Trace (NEG) Urine Nitrite Negative (NEG) Urine Bilirubin Negative (NEG) Urine Urobilinogen Dipstick 0.2 mg/dL (0.2 mg/dL) Urine Leukocyte Esterase Negative (NEG) Urine RBC Occ /HPF (0-2) Urine WBC Occ /HPF (0-4) Urine Squamous Epithelial Cells Few /LPF Urine Bacteria 0 /HPF (0-FEW) Sodium Level 143 mmol/L (136-145) Potassium Level 3.1 mmol/L (3.5-5.1) Chloride Level 105 mmol/L (98-107) Carbon Dioxide Level 21 mmol/L (21-32) Anion Gap 17 (6-14) Blood Urea Nitrogen 12 mg/dL (7-20) Creatinine 1.1 mg/dL (0.6-1.0) Estimated GFR (Cockcroft-Gault) 55.0 BUN/Creatinine Ratio 11 (6-20) Glucose Level 90 mg/dL (70-99) Calcium Level 8.6 mg/dL (8.5-10.1) Total Bilirubin 0.5 mg/dL (0.2-1.0) Aspartate Amino Transf (AST/SGOT) 94 U/L (15-37) Alanine Aminotransferase (ALT/SGPT) 63 U/L (14-59) Alkaline Phosphatase 178 U/L (46-116) Total Protein 7.6 g/dL (6.4-8.2) Albumin 3.4 g/dL (3.4-5.0) Albumin/Globulin Ratio 0.8 (1.0-1.7) Lipase 133 U/L (73-393) Ethyl Alcohol Level < 10 mg/dL (0-10) Urine Test Negative (NEG) Lactic Acid Level 2.6 mmol/L (0.4-2.0) Test 11/25/16 08:15 Lactic Acid Level 1.9 mmol/L (0.4-2.0) Iron Level 11 ug/dL (50-170) Total Iron Binding Capacity 282 ug/dL (250-450) Iron Saturation 4 % (15-34) Laboratory Tests Test 11/25/16 02:30 11/25/16 02:40 11/25/16 03:30 11/25/16 04:50 Urine Opiates Screen Neg (NEG) Urine Methadone Screen Neg (NEG) Urine Barbiturates Neg (NEG) Urine Phencyclidine Screen Neg (NEG) Urine Amphetamine/Methamphetamine Neg (NEG) Urine Benzodiazepines Screen Neg (NEG) Urine Cocaine Screen Neg (NEG) Urine Cannabinoids Screen Neg (NEG) Urine Ethyl Alcohol Neg (NEG) White Blood Count 2.3 x10^3/uL (4.0-11.0) Red Blood Count 4.45 x10^6/uL (3.50-5.40) Hemoglobin 10.2 g/dL (12.0-15.5) Hematocrit 31.8 % (36.0-47.0) Mean Corpuscular Volume 72 fL (79-100) Mean Corpuscular Hemoglobin 23 pg (25-35) Mean Corpuscular Hemoglobin Concent 32 g/dL (31-37) Red Cell Distribution Width 17.0 % (11.5-14.5) Platelet Count 175 x10^3/uL (140-400) Neutrophils (%) (Auto) 71 % (31-73) Lymphocytes (%) (Auto) 28 % (24-48) Monocytes (%) (Auto) 1 % (0-9) Eosinophils (%) (Auto) 0 % (0-3) Basophils (%) (Auto) 0 % (0-3) Neutrophils # (Auto) 1.6 x10^3uL (1.8-7.7) Lymphocytes # (Auto) 0.6 x10^3/uL (1.0-4.8) Monocytes # (Auto) 0.0 x10^3/uL (0.0-1.1) Eosinophils # (Auto) 0.0 x10^3/uL (0.0-0.7) Basophils # (Auto) 0.0 x10^3/uL (0.0-0.2) Platelet Estimate Adequate (ADEQUATE) Polychromasia Slight Microcytosis Slight Macrocytosis Slight Urine Collection Type U cath Urine Color Yellow Urine Clarity Clear Urine pH 5.5 Urine Specific Mather 1.010 Urine Protein Negative mg/dL (NEG-TRACE) Urine Glucose (UA) Negative mg/dL (NEG) Urine Ketones (Stick) Negative mg/dL (NEG) Urine Blood Trace (NEG) Urine Nitrite Negative (NEG) Urine Bilirubin Negative (NEG) Urine Urobilinogen Dipstick 0.2 mg/dL (0.2 mg/dL) Urine Leukocyte Esterase Negative (NEG) Urine RBC Occ /HPF (0-2) Urine WBC Occ /HPF (0-4) Urine Squamous Epithelial Cells Few /LPF Urine Bacteria 0 /HPF (0-FEW) Sodium Level 143 mmol/L (136-145) Potassium Level 3.1 mmol/L (3.5-5.1) Chloride Level 105 mmol/L (98-107) Carbon Dioxide Level 21 mmol/L (21-32) Anion Gap 17 (6-14) Blood Urea Nitrogen 12 mg/dL (7-20) Creatinine 1.1 mg/dL (0.6-1.0) Estimated GFR (Cockcroft-Gault) 55.0 BUN/Creatinine Ratio 11 (6-20) Glucose Level 90 mg/dL (70-99) Calcium Level 8.6 mg/dL (8.5-10.1) Total Bilirubin 0.5 mg/dL (0.2-1.0) Aspartate Amino Transf (AST/SGOT) 94 U/L (15-37) Alanine Aminotransferase (ALT/SGPT) 63 U/L (14-59) Alkaline Phosphatase 178 U/L (46-116) Total Protein 7.6 g/dL (6.4-8.2) Albumin 3.4 g/dL (3.4-5.0) Albumin/Globulin Ratio 0.8 (1.0-1.7) Lipase 133 U/L (73-393) Ethyl Alcohol Level < 10 mg/dL (0-10) Urine Test Negative (NEG) Lactic Acid Level 2.6 mmol/L (0.4-2.0) Test 11/25/16 08:15 Lactic Acid Level 1.9 mmol/L (0.4-2.0) Iron Level 11 ug/dL (50-170) Total Iron Binding Capacity 282 ug/dL (250-450) Iron Saturation 4 % (15-34) VTE Prophylaxis Ordered VTE Prophylaxis Devices: Yes VTE Pharmacological Prophylaxi: Yes Assessment/Plan Assessment/Plan 1. HYpotensive shock , recalcitrant to IVF\ 2. Diarhea,. GI loss 3. Severe SEpsis with organ dysfcn 4. NEutropenic, hx breast CA unknown stage 5. GAstrienteritis clinically and on CT 6. VAg bleeding with JUNIOR 7. Fevers _ Tmax 102 8. Bipolar and schiz by patient account\ 9. Sinus tachycardia, No PCP PLAn: Transefer to ICU Systolic BP 80s despite 3rd IVF Levophed gtt Send for stool studies start empiric abx Consult ID re severe sepsis Consult heme onc re breast cancer hc, neutropenia, get records from [facility] Get OB GYNE re vag bleeding and microcytic anemia NPO for now MAy check iron panel Check sonogram pelvis - s./p tubal ligation MOntior temps BC ordered LActate now normalized SCDs Dw RN and family and pt Anti nausea meds cc 38 mins SAROJ GUZMAN MD Nov 25, 2016 15:18
[2016-11-25] MEDS ORDERED: fentaNYL PF VIAL 100 MCG/2 ML VIAL IV PRN (17:15)
[2016-11-25] MEDS: POTASSIUM CHLORIDE 10MEQ 100 ML IV SCH ×3 (18:18→21:45)
[2016-11-25] MEDS ORDERED: ALPRAZolam 1 MG TABLET PO PRN (21:15)
[2016-11-25] MEDS ORDERED: HALOPERIDOL LACTATE 5 MG/ML VIAL. IM PRN (21:15)
[2016-11-25] MEDS ORDERED: ZIPRASIDONE IM 20 MG VIAL. IM ONE (21:30)
[2016-11-25] MEDS: HYDROmorphone 2 MG/ML VIAL IVP PRN (21:39)
[2016-11-25] MEDS: PIPERACILLIN/TAZOBACTAM 3.375 GM in IV NORMAL SALINE 50ML 50 ML IV SCH (21:45)
[2016-11-25] MEDS ORDERED: ZIPRASIDONE IM 20 MG VIAL. IM PRN (22:30)
--- NOTE | 2016-11-25 23:58 | CONS ---
DATE OF CONSULTATION: 11/25/2016 HISTORY OF PRESENT ILLNESS: The patient is a 41-year-old female who presents to the Emergency Room with vomiting and epigastric pain as well as diarrhea. Her diarrhea is not bloody, but she says that she has been having vaginal bleeding for the last 3 months. She has no PCP and has had poor compliance with medical followup. On admission to the hospital, she was hypotensive. This hypotension was not responding to IV fluids, so she was moved to the ICU. Temperature was around 99, but prior to that it was 95.3. Lactic acid was 2 and she was tachycardic with an elevated creatinine of 1.1, baseline is 0.8 from some labs done in 2013. A CT abdomen done in the Emergency Room showed enteritis, but no obstructive masses or any other cause for sepsis. ID is consulted to assist with management of a patient in septic shock. She has been on ceftriaxone and has been moved to the ICU. PAST MEDICAL HISTORY: Significant for breast cancer, which was diagnosed 3 years ago. She underwent a lumpectomy at , but did not follow up and so the stage is unknown. She also has bipolar disorder and schizophrenia and does not have regular followup for that, but she uses friends and family member's medications. She has a history of PUD and CAD, contact dermatitis, scabies, sinusitis. REVIEW OF SYSTEMS: Again is significant for vaginal bleeding. The patient cries throughout the whole exam and then falls asleep in the middle of a sentence and therefore complete review of systems is not available. FAMILY HISTORY: Unknown. SOCIAL HISTORY: She says that she was this year, but prior to that, she has had 7 children, the last of whom is 7 years old. All the children are not in her custody and are under the care of geriatric social work professor. She says she does not drink any alcohol, but she smokes every day, it depends on who she is with up to half to 1 pack a day. She also uses methamphetamine as well as other people's prescription medications. CONTACT HISTORY: There is no new history of travel and no new foods; however, the correctness of this information is unreliable. CURRENT MEDICATIONS: She has been started on ceftriaxone and she is on other supportive medications. Please refer to the full patient's chart for all the medication list. OBJECTIVE: VITAL SIGNS: Show a temperature of 98.2, T-max of 99.3, T-minimum of 95.3. Pulse rate is 116, respiratory rate 34 and blood pressure 85/41. GENERAL: The patient is tearful and restless, refusing most medical interventions. She does have blood that is staining the sheet either from an IV line or from vaginal bleeding. HEENT: She is normocephalic and atraumatic. Her eyes are puffy from crying. She has no sinus tenderness. She does have patchy skin melanosis on the areas of her face though do not clear the cause of that. There is no scarring. She has no scleral icterus. Mouth, ears and nose are within normal limits. She does have dental caries. NECK: Supple with no jugular venous distention or thyromegaly. CHEST: Has equal excursion bilaterally. It is difficult to auscultate because of the patient's constant cry, but I do not hear any rhonchi or crackles. CARDIAC: S1 and S2 are heard and they are within normal limits with no murmurs, rubs or gallops. ABDOMEN: Flat, soft with suprapubic tenderness. There is no specific costovertebral angle tenderness and she also does have marked epigastric tenderness. I do not palpate any organomegaly. Deep palpation is not attempted because of the patient's pain. EXTREMITIES: Reveal clubbing, no cyanosis or edema. SKIN: As described earlier revealed areas of melanosis but no rashes or ulcers. NEUROLOGIC: The patient is distraught, but moves all 4 extremities equally. She falls asleep mid sentence. LINES: She has a peripheral line on the left upper extremity without any erythema, tenderness or purulence. There are areas of previous attempts at IV lines today that were not successful. None of them is inflamed or infected. LABORATORY DATA: Show hemoglobin of 10.2, hematocrit of 31.8, platelet count of 175 and white cell count of 2.3. Again, baseline from the previous admission was 13.8. Polys are 71, lymphocytes are 28, monocytes are 1. BUN is 11, creatinine is 1.1. Sodium is 143, potassium 3.1, chloride 105, CO2 of 21. GFR is 55. Lactic acid was 2.6 in the ER and has come down to 1.9. AST is 94, ALT is 63, total bilirubin 0.5, total protein 7.6, and albumin 3.4. Alkaline phosphatase is 178. Urinalysis is negative. Lipase is 133. TSH is 0.609. UDS is negative. CT abdomen again reveals no acute process to explain her shock. A test is negative. ASSESSMENT: 1. A 41-year-old in septic shock. 2. Anion gap metabolic acidosis. 3. Acute abdomen of unclear etiology. 4. Dehydration. 5. Lower back pain. 6. History of methamphetamine abuse. 7. Fever. 8. Hypotension. 9. Tachycardia. 10. Gastroenteritis. PLAN: I would like to get stool WBC and stool cultures and sensitivities. Stool C. diff has been checked, blood cultures are already being worked up. I have ordered another additional blood culture with a temperature above 100.5. Urinalysis is negative and therefore, urine culture will not be done. CT abdomen has already been done. She will need an HIV test, hepatitis B, hepatitis A, and hepatitis C tests. In addition to that, I would like to discontinue ceftriaxone and start her on Zosyn 3.375 mg q. 8 hours as well as Flagyl at 500 mg q. 8 hours. Thank you for consulting. I will continue following this lady with you. GABINO BEAR MD DR: MERRILL/shayy JOB#: [id number] / [id number]
[2016-11-26] VITALS (40 sets, daily range): BP systolic 100–132; BP diastolic 53–81
[2016-11-26] MEDS: POTASSIUM CHLORIDE 10MEQ 100 ML IV SCH (00:38)
--- NOTE | 2016-11-26 01:03 | ACF ---
Admission Forms Criteria SEPSIS and Other Febrile Illness Without Focal Infection (Place 'X' for any and all applicable criteria): Admission to inpatient status for two midnights or more is indicated for ANY ONE of the following (1)(2)(3): [ ] I. Bacteremia [ X]II. Suspected or identified specific infection requiring hospitalization (eg, meningitis, endocarditis) [X ]III. Hemodynamic instability [ ]IV. Temperature > 104.9 0F (40.5 0C) (oral) [ ]V. Core (rectal) temperature < 95 0F (35 0C) (eg, thought to be due to infection) [ ]. Altered mental status that is severe or persistent [ ]VII. Failure or unavailability of outpatient antimicrobial treatment [ ]VIII. Hypoxemia [ ]IX. Seizures [ ]X. New coagulopathy (eg, reduced platelet count consistent with disseminated intravascular coagulation) [ ]XI. Inpatient admission required [B] rather than observation care because of 1 or more of the following 1) Tachypnea not responsive to outpatient or observation treatment 2) Metabolic disorder (eg, hypoglycemia, hyperglycemia, metabolic acidosis ) that persists despite outpatient and observation care treatment 3) Evidence of end-organ dysfunction (eg, rising creatinine, myocardial ischemia, rising liver function tests) that is severe or persists despite observation care treatment 4) Temperature > 103.1 0F (39.5 0C) (oral) that is not responsive to observation care treatment 5) Dehydration that is severe or persistent 6) Parenteral antimicrobial regimen that must be implemented on inpatient basis (eg, infusion or monitoring needs beyond capabilities of outpatient parenteral therapy) 7) Strict or protective (eg, laminar flow) isolation 8) Other condition, treatment or monitoring requiring inpatient admission Extended stay beyond goal length of stay may be needed for(1)(3) [ ]a) Persistent Hypotension [ ]b) Positive blood cultures [ ]c) Lack of improvement on antimicrobial treatment (eg, continued fever) [ ]d) Active comorbid illness (eg, heart failure, renal failure) [ ]e) High-risk febrile neutropenia [ ]f) Insufficient oral intake [ ]g) insufficient oral intake The original [facility] [employer] content created by [employer] has been revised. The portions of the content which have been revised are identified through the use of italic text, and [facility] [employer] has neither reviewed nor approved the modified material. All other unmodified content is copyright [facility]. Please see references footnoted in the original [facility] edition 2015 Admission Criteria Met?: Yes DAREK WINSLOW Nov 26, 2016 01:03
[2016-11-26] MEDS: PIPERACILLIN/TAZOBACTAM 3.375 GM in IV NORMAL SALINE 50ML 50 ML IV SCH ×5 (02:20→23:57)
[2016-11-26] MEDS: HYDROmorphone 2 MG/ML VIAL IVP PRN ×3 (04:05→23:57)
[2016-11-26] MEDS: IV NORMAL SALINE 1000ML BAG 1,000 ML IV SCH ×3 (04:55→17:20)
[2016-11-26 05:46] LABS: CALCIUM 6.9 mg/dL (8.5-10.1); CREATININE 1.1 mg/dL (0.6-1.0); POTASSIUM 4.1 mmol/L (3.5-5.1)
[2016-11-26 06:33] LABS: BASO % 0 % (0-3); EOS % 0 % (0-3); HEMATOCRIT 26.3 % (36.0-47.0); HEMOGLOBIN 8.4 g/dL (12.0-15.5); LYMPH # 1.2 x10^3/uL (1.0-4.8); LYMPH % 3 % (24-48); MEAN CORPUSCULAR HEMOGLOBIN 23 pg (25-35); MEAN CORPUSCULAR HGB CONC 32 g/dL (31-37); MEAN CORPUSCULAR VOLUME 71 fL (79-100); MONO % 4 % (0-9); NEUT % 93 % (31-73); PLATELET COUNT 104 x10^3/uL (140-400); RED BLOOD COUNT 3.69 x10^6/uL (3.50-5.40); RED CELL DISTRIBUTION WIDTH 17.4 % (11.5-14.5)
[2016-11-26 06:37] LABS: WHITE BLOOD COUNT 45.7 x10^3/uL (4.0-11.0)
--- NOTE | 2016-11-26 07:12 | RAD ---
Portable chest, 11/26/2016: History: Check PICC placement A right PICC is in place extending into the inferior aspect of the superior vena cava. The heart is at the upper limits of normal in size. There is minimal bibasilar atelectasis/infiltrate. IMPRESSION: 1. The right PICC extends into the superior vena cava. 2. Minimal patchy bibasilar atelectasis/infiltrate.
[2016-11-26] MEDS ORDERED: PERMETHRIN 5% TOPICAL CREAM 60GM TUBE. TP SCH (09:00)
--- NOTE | 2016-11-26 09:31 | PDOC ---
Infectious Disease Note Subjective Subjective Recent Dilaudid and Ativan for pain and agitation No further diarrhea No fever last 24 hours Hypotensive, Levophed 3 mcg Regular diet ROS ROS Vital Sign Vital Signs Vital Signs Date Time Temp Pulse Resp B/P (MAP) Pulse Ox O2 Delivery O2 Flow Rate FiO2 11/26/16 07:00 84 20 111/70 (84) 100 Nasal Cannula 2.0 11/25/16 22:15 98.8 98.8 Physical Exam PHYSICAL EXAM GENERAL: propped up in bed, NAD HEENT: Oral cavity dry, missing teeth & caries NECK: Supple LUNGS: Clear anteriorly, nonlabored HEART: S1 and S2 ABDOMEN: Soft, NT to light palpation EXTREMITIES: no cyanosis or edema. SKIN: No rash NEUROLOGIC: Lethargic RUE-PICC. clean Labs Lab Laboratory Tests Test 11/26/16 05:20 White Blood Count 45.7 x10^3/uL (4.0-11.0) Red Blood Count 3.69 x10^6/uL (3.50-5.40) Hemoglobin 8.4 g/dL (12.0-15.5) Hematocrit 26.3 % (36.0-47.0) Mean Corpuscular Volume 71 fL (79-100) Mean Corpuscular Hemoglobin 23 pg (25-35) Mean Corpuscular Hemoglobin Concent 32 g/dL (31-37) Red Cell Distribution Width 17.4 % (11.5-14.5) Platelet Count 104 x10^3/uL (140-400) Neutrophils (%) (Auto) 93 % (31-73) Lymphocytes (%) (Auto) 3 % (24-48) Monocytes (%) (Auto) 4 % (0-9) Eosinophils (%) (Auto) 0 % (0-3) Basophils (%) (Auto) 0 % (0-3) Neutrophils # (Auto) 42.6 x10^3uL (1.8-7.7) Lymphocytes # (Auto) 1.2 x10^3/uL (1.0-4.8) Monocytes # (Auto) 1.9 x10^3/uL (0.0-1.1) Eosinophils # (Auto) 0.0 x10^3/uL (0.0-0.7) Basophils # (Auto) 0.0 x10^3/uL (0.0-0.2) Sodium Level 140 mmol/L (136-145) Potassium Level 4.1 mmol/L (3.5-5.1) Chloride Level 109 mmol/L (98-107) Carbon Dioxide Level 22 mmol/L (21-32) Anion Gap 9 (6-14) Blood Urea Nitrogen 18 mg/dL (7-20) Creatinine 1.1 mg/dL (0.6-1.0) Estimated GFR (Cockcroft-Gault) 55.0 Glucose Level 114 mg/dL (70-99) Calcium Level 6.9 mg/dL (8.5-10.1) C-Reactive Protein, Quantitative 140.6 mg/L (0-3.3) Procalcitonin 40.01 ng/mL (0.00-0.10) CXR IMPRESSION: 1. The right PICC extends into the superior vena cava. 2. Minimal patchy bibasilar atelectasis/infiltrate.EXAM: Abdomen and pelvis CT with intravenous contrast. CT abd/pelvis IMPRESSION: No acute intra-abdominal or pelvic process. A few fluid-filled small bowel loops are present, not dilated. Findings may represent enteritis. Distal esophagus is mildly dilated and fluid-filled. Micro BLOOD CULTURE Preliminary NO GROWTH AFTER 1 DAY Objective Assessment Septic shock. Leukopenia, now leukocytosis - on Prednisone Anion gap metabolic acidosis. Acute abdomen Dehydration. Gastroenteritis. Lower back pain. History of methamphetamine abuse and custodial time. ? Withdrawl Schizophrenia/Bipolar h/o breast cancer Plan Plan of Care Zosyn, Levaquin & Flagyl Add Vanc Steroids Stool for C. diff not collected f/u labs and cultures Supportive care Attending Co-Sign Attending Co-Sign The patient was seen and interviewed as well as examined at the bedside. The chart was reviewed. The case was discussed. Agree with the plan of care. BETH NICE APRN Nov 26, 2016 09:31 ÁLVARO WILLIAM MD Nov 26, 2016 15:12
[2016-11-26] MEDS: predniSONE 20 MG TABLET PO SCH (09:43)
--- NOTE | 2016-11-26 09:58 | PDOC ---
Provider Note Provider Note Onc consult dictated- [id number] Iron def anemia- Venofer ordered. 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 Pt/ know no details. Not pressing issue at this time. Thank you. CELIA ALVAREZ DO Nov 26, 2016 09:58
[2016-11-26] MEDS: NICOTINE 21MG PATCH. TD SCH (10:30)
--- NOTE | 2016-11-26 11:48 | PDOC2 ---
CONSULT Date of Consult Date of Consult DATE: 11/26/16 TIME: 11:40 Reason for Consult Reason for Consult: vaginal bleeding Referring Physician Referring Physician: Dr. Diana Identification/Chief Complaint Chief Complaint fatigue and fevers Problems: Source Source: Chart review, Unable to obtain due to (patient sleeping ) History of Present Illness Reason for Visit: 41 y/o presented to ED with fatigue, fevers and prolonged vaginal bleeding. Pt. with minimal vaginal bleeding intermittently since admission. No active flow currently. Pt. on pressors, IV abx and fluid management. Past Medical History GI: GERD Psych: Anxiety, Addictions, Bipolar, Schizophrenia Past Surgical History Past Surgical History: No pertinent history Family History Family History: Family History Unknown Social History # pack years ALCOHOL: none Drugs: Other (methamphetamine) Current Problem List Problem List Problems Medical Problems: (1) Abdominal pain Status: Acute (2) Dehydration Status: Acute (3) Fever Status: Acute (4) Lower back pain Status: Acute (5) Methamphetamine abuse Status: Acute (6) Nausea vomiting and diarrhea Status: Acute Current Medications Current Medications Current Medications Ondansetron HCl (Zofran) 4 mg 1X ONCE IV Last administered on 11/25/16 02:52 ; Start 11/25/16 at 02:15; Stop 11/25/16 at 02:17; Status DC Sodium Chloride 1,000 ml @ 1,000 mls/hr 1X ONCE IV Last administered on 02:52; Start 11/25/16 at 02:15; Stop 11/25/16 at 03:14; Status DC Ketorolac Tromethamine (Toradol) 15 mg 1X ONCE IV Last administered on 04:52; Start 11/25/16 at 04:45; Stop 11/25/16 at 04:46; Status DC Acetaminophen (Tylenol) 650 mg 1X ONCE PO Last administered on 11/25/16 04:53 ; Start 11/25/16 at 04:45; Stop 11/25/16 at 04:46; Status DC Hydromorphone HCl (Dilaudid) 1 mg 1X ONCE IV Last administered on 11/25/16 04 :52; Start 11/25/16 at 04:45; Stop 11/25/16 at 04:46; Status DC Sodium Chloride 1,000 ml @ 1,000 mls/hr 1X ONCE IV Last administered on 04:53; Start 11/25/16 at 04:45; Stop 11/25/16 at 05:44; Status DC Ceftriaxone Sodium 50 ml @ 100 mls/hr 1X ONCE IV Last administered on 04:53; Start 11/25/16 at 04:45; Stop 11/25/16 at 05:14; Status DC Iohexol (Omnipaque 300 Mg/ml) 75 ml 1X ONCE IV Last administered on 11/25/16 05:26; Start 11/25/16 at 05:00; Stop 11/25/16 at 05:01; Status DC Ceftriaxone Sodium (Rocephin Im) 1 gm STK-MED ONCE IM ; Start 11/25/16 at 04:37 ; Stop 11/25/16 at 04:38; Status DC Info (Do NOT chart on this entry -- for MONITORING) 1 each PRN DAILY PRN MC SEE COMMENTS; Start 11/25/16 at 05:00; Stop 11/27/16 at 04:59 Sodium Chloride 1,000 ml @ 2,790 mls/hr Q22M IV ; Start 11/25/16 at 06:15; Stop 11/25/16 at 07:14; Status DC Ondansetron HCl (Zofran) 4 mg PRN Q8HRS PRN IV NAUSEA/VOMITING; Start 11/25/16 at 06:15; Stop 11/25/16 at 09:40; Status DC Morphine Sulfate 4 mg PRN Q2HR PRN IV PAIN Last administered on 11/25/16 17:47 ; Start 11/25/16 at 06:15; Stop 11/26/16 at 06:14; Status DC Acetaminophen (Tylenol) 650 mg PRN Q4HRS PRN PO FEVER Last administered on 11/25 07:48; Start 11/25/16 at 06:15; Stop 11/26/16 at 06:14; Status DC Multivitamins 10 ml/Folic Acid 1 mg/Thiamine HCl 100 mg/Sodium Chloride 1,011.2 ml @ 1,000 mls/ hr 1X ONCE IV Last administered on 11/25/16 06:20; Start at 06:30; Stop 11/25/16 at 07:30; Status DC Ondansetron HCl (Zofran) 4 mg PRN Q6HRS PRN IV NAUSEA/VOMITING; Start 11/25/16 at 09:37; Stop 11/26/16 at 09:36; Status DC Loperamide HCl (Imodium) 2 mg PRN Q15MIN PRN PO DIARRHEA; Start 11/25/16 at 09: 45 Levofloxacin/ Dextrose 100 ml @ 100 mls/hr Q24H IV Last administered on 10:28; Start 11/25/16 at 10:00 Permethrin (Elimite) 1 malik DAILY TP ; Start 11/26/16 at 09:00; Status UNV Prednisone (Prednisone) 40 mg DAILY PO Last administered on 11/26/16 09:43; Start 11/25/16 at 10:00 Non-Formulary Medication 118 ml 1X TP ; Start 11/25/16 at 09:45; Status UNV Sodium Chloride 1,000 ml @ 125 mls/hr Q8H IV Last administered on 11/26/16 09 :44; Start 11/25/16 at 09:45 Sodium Chloride 1,000 ml @ 1,000 mls/hr 1X ONCE IV Last administered on 15:05; Start 11/25/16 at 15:00; Stop 11/25/16 at 15:59; Status DC Potassium Chloride 100 ml @ 100 mls/hr Q1H IV Last administered on 11/26/16 00:38; Start 11/25/16 at 16:00; Stop 11/25/16 at 19:59; Status DC Norepinephrine Bitartrate 250 ml @ 0 mls/hr CONT PRN IV SEE I/O RECORD; Start 11/25/16 at 15:00 Prochlorperazine Edisylate (Compazine) 10 mg PRN Q6HRS PRN IV NAUSEA/VOMITING; Start 11/25/16 at 15:15 Lorazepam (Ativan) 2 mg PRN Q4HRS PRN IV ANXIETY / AGITATION Last administered on 11/26/16 04:04; Start 11/25/16 at 17:15 Hydromorphone HCl (Dilaudid) 0.4 mg PRN Q4HRS PRN IVP PAIN Last administered on 11/26/16 04:05; Start 11/25/16 at 17:15 Fentanyl Citrate (Fentanyl 2ml Vial) 25 mcg PRN Q2HR PRN IV PAIN; Start at 17:15 Lorazepam (Ativan) 2 mg STK-MED ONCE .ROUTE ; Start 11/25/16 at 17:30; Stop at 18:28; Status DC Piperacillin Sod/ Tazobactam Sod 3.375 gm/Sodium Chloride 50 ml @ 100 mls/hr Q6HRS IV Last administered on 11/26/16 05:44; Start 11/25/16 at 20:00 Metronidazole 100 ml @ 100 mls/hr Q8HRS IV Last administered on 11/26/16 06: 44; Start 11/25/16 at 22:00 Alprazolam (Xanax) 1 mg PRN Q4HRS PRN PO ANXIETY / AGITATION; Start 11/25/16 at 21:15 Diazepam (Valium) 5 mg PRN TID PRN IV WITHDRAWAL IRRITABILITY; Start 11/25/16 at 21:15 Haloperidol Lactate (Haldol) 5 mg PRN Q4HRS PRN IM AGITATION; Start 11/25/16 at 21:15 Ziprasidone (Geodon Im) 10 mg 1X ONCE IM ; Start 11/25/16 at 21:30; Stop at 21:31; Status Cancel Ziprasidone (Geodon Im) 10 mg PRN 1X PRN IM ANXIETY / AGITATION; Start at 22:30 Iron Sucrose 500 mg/Sodium Chloride 275 ml @ 78.571 mls/ hr DAILY IV ; Start at 10:30; Stop 11/27/16 at 12:29 Iron Sucrose 500 mg/Sodium Chloride 275 ml @ 78.571 mls/ hr 1X ONCE IV ; Start 11/27/16 at 09:30; Stop 11/27/16 at 12:59; Status UNV Nicotine (Nicoderm Cq 21mg) 1 patch DAILY TD Last administered on 11/26/16 10: 30; Start 11/26/16 at 10:00 Active Scripts Active Clobex (Clobetasol Propionate) 118 Ml Shampoo 118 Ml TP 1X Prednisone 20 Mg Tablet 40 Mg PO DAILY Permethrin 60 Gm Cream..g. 1 Malik TP ONCE Prednisone 20 Mg Tablet 40 Mg PO DAILY Augmentin 875-125 Tablet (Amoxicillin/Potassium Clav) 1 Each Tablet 1 Tab PO BID Allergies Allergies: Coded Allergies: No Known Drug Allergies (Unverified , 07/03/13) ROS Review of System unable to obtain. pt. sleeping hard. Physical Exam Physical Exam exam deferred. General: No acute distress Vitals VITALS Vital Signs Date Time Temp Pulse Resp B/P (MAP) Pulse Ox O2 Delivery O2 Flow Rate FiO2 11/26/16 11:00 92 19 110/62 (78) 99 Room Air 11/26/16 08:00 2.0 11/26/16 08:00 97.6 97.6 Labs Labs Laboratory Tests Test 11/25/16 02:30 11/25/16 02:40 11/25/16 03:30 11/25/16 04:50 Urine Opiates Screen Neg (NEG) Urine Methadone Screen Neg (NEG) Urine Barbiturates Neg (NEG) Urine Phencyclidine Screen Neg (NEG) Urine Amphetamine/Methamphetamine Neg (NEG) Urine Benzodiazepines Screen Neg (NEG) Urine Cocaine Screen Neg (NEG) Urine Cannabinoids Screen Neg (NEG) Urine Ethyl Alcohol Neg (NEG) White Blood Count 2.3 x10^3/uL (4.0-11.0) Red Blood Count 4.45 x10^6/uL (3.50-5.40) Hemoglobin 10.2 g/dL (12.0-15.5) Hematocrit 31.8 % (36.0-47.0) Mean Corpuscular Volume 72 fL (79-100) Mean Corpuscular Hemoglobin 23 pg (25-35) Mean Corpuscular Hemoglobin Concent 32 g/dL (31-37) Red Cell Distribution Width 17.0 % (11.5-14.5) Platelet Count 175 x10^3/uL (140-400) Neutrophils (%) (Auto) 71 % (31-73) Lymphocytes (%) (Auto) 28 % (24-48) Monocytes (%) (Auto) 1 % (0-9) Eosinophils (%) (Auto) 0 % (0-3) Basophils (%) (Auto) 0 % (0-3) Neutrophils # (Auto) 1.6 x10^3uL (1.8-7.7) Lymphocytes # (Auto) 0.6 x10^3/uL (1.0-4.8) Monocytes # (Auto) 0.0 x10^3/uL (0.0-1.1) Eosinophils # (Auto) 0.0 x10^3/uL (0.0-0.7) Basophils # (Auto) 0.0 x10^3/uL (0.0-0.2) Platelet Estimate Adequate (ADEQUATE) Polychromasia Slight Microcytosis Slight Macrocytosis Slight Urine Collection Type U cath Urine Color Yellow Urine Clarity Clear Urine pH 5.5 Urine Specific [place] 1.010 Urine Protein Negative mg/dL (NEG-TRACE) Urine Glucose (UA) Negative mg/dL (NEG) Urine Ketones (Stick) Negative mg/dL (NEG) Urine Blood Trace (NEG) Urine Nitrite Negative (NEG) Urine Bilirubin Negative (NEG) Urine Urobilinogen Dipstick 0.2 mg/dL (0.2 mg/dL) Urine Leukocyte Esterase Negative (NEG) Urine RBC Occ /HPF (0-2) Urine WBC Occ /HPF (0-4) Urine Squamous Epithelial Cells Few /LPF Urine Bacteria 0 /HPF (0-FEW) Sodium Level 143 mmol/L (136-145) Potassium Level 3.1 mmol/L (3.5-5.1) Chloride Level 105 mmol/L (98-107) Carbon Dioxide Level 21 mmol/L (21-32) Anion Gap 17 (6-14) Blood Urea Nitrogen 12 mg/dL (7-20) Creatinine 1.1 mg/dL (0.6-1.0) Estimated GFR (Cockcroft-Gault) 55.0 BUN/Creatinine Ratio 11 (6-20) Glucose Level 90 mg/dL (70-99) Calcium Level 8.6 mg/dL (8.5-10.1) Total Bilirubin 0.5 mg/dL (0.2-1.0) Aspartate Amino Transf (AST/SGOT) 94 U/L (15-37) Alanine Aminotransferase (ALT/SGPT) 63 U/L (14-59) Alkaline Phosphatase 178 U/L (46-116) Total Protein 7.6 g/dL (6.4-8.2) Albumin 3.4 g/dL (3.4-5.0) Albumin/Globulin Ratio 0.8 (1.0-1.7) Lipase 133 U/L (73-393) Ethyl Alcohol Level < 10 mg/dL (0-10) Urine Test Negative (NEG) Lactic Acid Level 2.6 mmol/L (0.4-2.0) Test 11/25/16 08:15 11/26/16 05:20 Lactic Acid Level 1.9 mmol/L (0.4-2.0) Iron Level 11 ug/dL (50-170) Total Iron Binding Capacity 282 ug/dL (250-450) Iron Saturation 4 % (15-34) Thyroid Stimulating Hormone (TSH) 0.609 uIU/mL (0.358-3.74) White Blood Count 45.7 x10^3/uL (4.0-11.0) Red Blood Count 3.69 x10^6/uL (3.50-5.40) Hemoglobin 8.4 g/dL (12.0-15.5) Hematocrit 26.3 % (36.0-47.0) Mean Corpuscular Volume 71 fL (79-100) Mean Corpuscular Hemoglobin 23 pg (25-35) Mean Corpuscular Hemoglobin Concent 32 g/dL (31-37) Red Cell Distribution Width 17.4 % (11.5-14.5) Platelet Count 104 x10^3/uL (140-400) Neutrophils (%) (Auto) 93 % (31-73) Lymphocytes (%) (Auto) 3 % (24-48) Monocytes (%) (Auto) 4 % (0-9) Eosinophils (%) (Auto) 0 % (0-3) Basophils (%) (Auto) 0 % (0-3) Neutrophils # (Auto) 42.6 x10^3uL (1.8-7.7) Lymphocytes # (Auto) 1.2 x10^3/uL (1.0-4.8) Monocytes # (Auto) 1.9 x10^3/uL (0.0-1.1) Eosinophils # (Auto) 0.0 x10^3/uL (0.0-0.7) Basophils # (Auto) 0.0 x10^3/uL (0.0-0.2) Sodium Level 140 mmol/L (136-145) Potassium Level 4.1 mmol/L (3.5-5.1) Chloride Level 109 mmol/L (98-107) Carbon Dioxide Level 22 mmol/L (21-32) Anion Gap 9 (6-14) Blood Urea Nitrogen 18 mg/dL (7-20) Creatinine 1.1 mg/dL (0.6-1.0) Estimated GFR (Cockcroft-Gault) 55.0 Glucose Level 114 mg/dL (70-99) Calcium Level 6.9 mg/dL (8.5-10.1) C-Reactive Protein, Quantitative 140.6 mg/L (0-3.3) Procalcitonin 40.01 ng/mL (0.00-0.10) Laboratory Tests Test 11/26/16 05:20 White Blood Count 45.7 x10^3/uL (4.0-11.0) Red Blood Count 3.69 x10^6/uL (3.50-5.40) Hemoglobin 8.4 g/dL (12.0-15.5) Hematocrit 26.3 % (36.0-47.0) Mean Corpuscular Volume 71 fL (79-100) Mean Corpuscular Hemoglobin 23 pg (25-35) Mean Corpuscular Hemoglobin Concent 32 g/dL (31-37) Red Cell Distribution Width 17.4 % (11.5-14.5) Platelet Count 104 x10^3/uL (140-400) Neutrophils (%) (Auto) 93 % (31-73) Lymphocytes (%) (Auto) 3 % (24-48) Monocytes (%) (Auto) 4 % (0-9) Eosinophils (%) (Auto) 0 % (0-3) Basophils (%) (Auto) 0 % (0-3) Neutrophils # (Auto) 42.6 x10^3uL (1.8-7.7) Lymphocytes # (Auto) 1.2 x10^3/uL (1.0-4.8) Monocytes # (Auto) 1.9 x10^3/uL (0.0-1.1) Eosinophils # (Auto) 0.0 x10^3/uL (0.0-0.7) Basophils # (Auto) 0.0 x10^3/uL (0.0-0.2) Sodium Level 140 mmol/L (136-145) Potassium Level 4.1 mmol/L (3.5-5.1) Chloride Level 109 mmol/L (98-107) Carbon Dioxide Level 22 mmol/L (21-32) Anion Gap 9 (6-14) Blood Urea Nitrogen 18 mg/dL (7-20) Creatinine 1.1 mg/dL (0.6-1.0) Estimated GFR (Cockcroft-Gault) 55.0 Glucose Level 114 mg/dL (70-99) Calcium Level 6.9 mg/dL (8.5-10.1) C-Reactive Protein, Quantitative 140.6 mg/L (0-3.3) Procalcitonin 40.01 ng/mL (0.00-0.10) Assessment/Plan Assessment/Plan A: Sepsis AUB Anemia: chronic iron deficiency P: Agree with IV abx and IV iron replacement. No acute processes per CT scan. Will see in clinic when sepsis resolved for evaluation AUB. Thank you for consult. FEDERICO MIRAMONTES Jr, MD Nov 26, 2016 11:48
--- NOTE | 2016-11-26 11:54 | PDOC ---
PROGRESS NOTES Chief Complaint Chief Complaint Abdominal pain Diarrhea Vomiting Low back pain GERD Anxiety Addictions Bipolar disorder Schizophrenia Breast cancer History of Present Illness History of Present Illness Patient was seen in the ICU for severe sepsis. Patient was awake, but not alert. Patient appeared weak. Undergoing meth withdrawal. Patient's was present. Discussed case with nurse. Nurse was told patient had tried to cut herself 1 or 2 days before admission. Patient had suicidal ideations. Has hx of bipolar disorder and schizophrenia. WBC is elevated at 45.7. Hx of breast cancer- unknown stage. Could not locate any records from . Patient stated she wants to go home. Vitals Vitals Vital Signs Date Time Temp Pulse Resp B/P (MAP) Pulse Ox O2 Delivery O2 Flow Rate FiO2 11/26/16 11:00 92 19 110/62 (78) 99 Room Air 11/26/16 08:00 2.0 11/26/16 08:00 97.6 97.6 Physical Exam General: moderate distress, Other (uncomfortable) Heart: Regular rate, No murmurs Lungs: Clear, Other (no r/r/w) Abdomen: Soft, Other (tenderness to epigastric area) Extremities: No clubbing, No cyanosis, No edema, Normal pulses, No tenderness/ swelling Skin: No rashes, No breakdown, No significant lesion Labs LABS Laboratory Tests Test 11/26/16 05:20 White Blood Count 45.7 x10^3/uL (4.0-11.0) Red Blood Count 3.69 x10^6/uL (3.50-5.40) Hemoglobin 8.4 g/dL (12.0-15.5) Hematocrit 26.3 % (36.0-47.0) Mean Corpuscular Volume 71 fL (79-100) Mean Corpuscular Hemoglobin 23 pg (25-35) Mean Corpuscular Hemoglobin Concent 32 g/dL (31-37) Red Cell Distribution Width 17.4 % (11.5-14.5) Platelet Count 104 x10^3/uL (140-400) Neutrophils (%) (Auto) 93 % (31-73) Lymphocytes (%) (Auto) 3 % (24-48) Monocytes (%) (Auto) 4 % (0-9) Eosinophils (%) (Auto) 0 % (0-3) Basophils (%) (Auto) 0 % (0-3) Neutrophils # (Auto) 42.6 x10^3uL (1.8-7.7) Lymphocytes # (Auto) 1.2 x10^3/uL (1.0-4.8) Monocytes # (Auto) 1.9 x10^3/uL (0.0-1.1) Eosinophils # (Auto) 0.0 x10^3/uL (0.0-0.7) Basophils # (Auto) 0.0 x10^3/uL (0.0-0.2) Sodium Level 140 mmol/L (136-145) Potassium Level 4.1 mmol/L (3.5-5.1) Chloride Level 109 mmol/L (98-107) Carbon Dioxide Level 22 mmol/L (21-32) Anion Gap 9 (6-14) Blood Urea Nitrogen 18 mg/dL (7-20) Creatinine 1.1 mg/dL (0.6-1.0) Estimated GFR (Cockcroft-Gault) 55.0 Glucose Level 114 mg/dL (70-99) Calcium Level 6.9 mg/dL (8.5-10.1) C-Reactive Protein, Quantitative 140.6 mg/L (0-3.3) Procalcitonin 40.01 ng/mL (0.00-0.10) Review of Systems Review of Systems Patient complains of abdominal pain. Patient complains of low back pain. Assessment and Plan Assessmemt and Plan Problems Medical Problems: (1) Abdominal pain Status: Acute (2) Dehydration Status: Acute (3) Fever Status: Acute (4) Lower back pain Status: Acute (5) Methamphetamine abuse Status: Acute (6) Nausea vomiting and diarrhea Status: Acute Assessment: Abdominal pain Diarrhea Vomiting Low back pain GERD Anxiety Addictions Bipolar disorder Schizophrenia Breast cancer Plan: 1. Continue norepinephrine 2. Iron infusions ordered 3. Continue IV antibiotics 4. Continue pain medications 5. Home medications 6. Appreciate ID input Total time 32 minutes Problems: Comment Review of Relevant I have reviewed the following items [email or web address] (where applicable) has been applied. Labs Laboratory Tests Test 11/25/16 02:30 11/25/16 02:40 11/25/16 03:30 11/25/16 04:50 Urine Opiates Screen Neg (NEG) Urine Methadone Screen Neg (NEG) Urine Barbiturates Neg (NEG) Urine Phencyclidine Screen Neg (NEG) Urine Amphetamine/Methamphetamine Neg (NEG) Urine Benzodiazepines Screen Neg (NEG) Urine Cocaine Screen Neg (NEG) Urine Cannabinoids Screen Neg (NEG) Urine Ethyl Alcohol Neg (NEG) White Blood Count 2.3 x10^3/uL (4.0-11.0) Red Blood Count 4.45 x10^6/uL (3.50-5.40) Hemoglobin 10.2 g/dL (12.0-15.5) Hematocrit 31.8 % (36.0-47.0) Mean Corpuscular Volume 72 fL (79-100) Mean Corpuscular Hemoglobin 23 pg (25-35) Mean Corpuscular Hemoglobin Concent 32 g/dL (31-37) Red Cell Distribution Width 17.0 % (11.5-14.5) Platelet Count 175 x10^3/uL (140-400) Neutrophils (%) (Auto) 71 % (31-73) Lymphocytes (%) (Auto) 28 % (24-48) Monocytes (%) (Auto) 1 % (0-9) Eosinophils (%) (Auto) 0 % (0-3) Basophils (%) (Auto) 0 % (0-3) Neutrophils # (Auto) 1.6 x10^3uL (1.8-7.7) Lymphocytes # (Auto) 0.6 x10^3/uL (1.0-4.8) Monocytes # (Auto) 0.0 x10^3/uL (0.0-1.1) Eosinophils # (Auto) 0.0 x10^3/uL (0.0-0.7) Basophils # (Auto) 0.0 x10^3/uL (0.0-0.2) Platelet Estimate Adequate (ADEQUATE) Polychromasia Slight Microcytosis Slight Macrocytosis Slight Urine Collection Type U cath Urine Color Yellow Urine Clarity Clear Urine pH 5.5 Urine Specific [place] 1.010 Urine Protein Negative mg/dL (NEG-TRACE) Urine Glucose (UA) Negative mg/dL (NEG) Urine Ketones (Stick) Negative mg/dL (NEG) Urine Blood Trace (NEG) Urine Nitrite Negative (NEG) Urine Bilirubin Negative (NEG) Urine Urobilinogen Dipstick 0.2 mg/dL (0.2 mg/dL) Urine Leukocyte Esterase Negative (NEG) Urine RBC Occ /HPF (0-2) Urine WBC Occ /HPF (0-4) Urine Squamous Epithelial Cells Few /LPF Urine Bacteria 0 /HPF (0-FEW) Sodium Level 143 mmol/L (136-145) Potassium Level 3.1 mmol/L (3.5-5.1) Chloride Level 105 mmol/L (98-107) Carbon Dioxide Level 21 mmol/L (21-32) Anion Gap 17 (6-14) Blood Urea Nitrogen 12 mg/dL (7-20) Creatinine 1.1 mg/dL (0.6-1.0) Estimated GFR (Cockcroft-Gault) 55.0 BUN/Creatinine Ratio 11 (6-20) Glucose Level 90 mg/dL (70-99) Calcium Level 8.6 mg/dL (8.5-10.1) Total Bilirubin 0.5 mg/dL (0.2-1.0) Aspartate Amino Transf (AST/SGOT) 94 U/L (15-37) Alanine Aminotransferase (ALT/SGPT) 63 U/L (14-59) Alkaline Phosphatase 178 U/L (46-116) Total Protein 7.6 g/dL (6.4-8.2) Albumin 3.4 g/dL (3.4-5.0) Albumin/Globulin Ratio 0.8 (1.0-1.7) Lipase 133 U/L (73-393) Ethyl Alcohol Level < 10 mg/dL (0-10) Urine Test Negative (NEG) Lactic Acid Level 2.6 mmol/L (0.4-2.0) Test 11/25/16 08:15 11/26/16 05:20 Lactic Acid Level 1.9 mmol/L (0.4-2.0) Iron Level 11 ug/dL (50-170) Total Iron Binding Capacity 282 ug/dL (250-450) Iron Saturation 4 % (15-34) Thyroid Stimulating Hormone (TSH) 0.609 uIU/mL (0.358-3.74) White Blood Count 45.7 x10^3/uL (4.0-11.0) Red Blood Count 3.69 x10^6/uL (3.50-5.40) Hemoglobin 8.4 g/dL (12.0-15.5) Hematocrit 26.3 % (36.0-47.0) Mean Corpuscular Volume 71 fL (79-100) Mean Corpuscular Hemoglobin 23 pg (25-35) Mean Corpuscular Hemoglobin Concent 32 g/dL (31-37) Red Cell Distribution Width 17.4 % (11.5-14.5) Platelet Count 104 x10^3/uL (140-400) Neutrophils (%) (Auto) 93 % (31-73) Lymphocytes (%) (Auto) 3 % (24-48) Monocytes (%) (Auto) 4 % (0-9) Eosinophils (%) (Auto) 0 % (0-3) Basophils (%) (Auto) 0 % (0-3) Neutrophils # (Auto) 42.6 x10^3uL (1.8-7.7) Lymphocytes # (Auto) 1.2 x10^3/uL (1.0-4.8) Monocytes # (Auto) 1.9 x10^3/uL (0.0-1.1) Eosinophils # (Auto) 0.0 x10^3/uL (0.0-0.7) Basophils # (Auto) 0.0 x10^3/uL (0.0-0.2) Sodium Level 140 mmol/L (136-145) Potassium Level 4.1 mmol/L (3.5-5.1) Chloride Level 109 mmol/L (98-107) Carbon Dioxide Level 22 mmol/L (21-32) Anion Gap 9 (6-14) Blood Urea Nitrogen 18 mg/dL (7-20) Creatinine 1.1 mg/dL (0.6-1.0) Estimated GFR (Cockcroft-Gault) 55.0 Glucose Level 114 mg/dL (70-99) Calcium Level 6.9 mg/dL (8.5-10.1) C-Reactive Protein, Quantitative 140.6 mg/L (0-3.3) Procalcitonin 40.01 ng/mL (0.00-0.10) Laboratory Tests Test 11/26/16 05:20 White Blood Count 45.7 x10^3/uL (4.0-11.0) Red Blood Count 3.69 x10^6/uL (3.50-5.40) Hemoglobin 8.4 g/dL (12.0-15.5) Hematocrit 26.3 % (36.0-47.0) Mean Corpuscular Volume 71 fL (79-100) Mean Corpuscular Hemoglobin 23 pg (25-35) Mean Corpuscular Hemoglobin Concent 32 g/dL (31-37) Red Cell Distribution Width 17.4 % (11.5-14.5) Platelet Count 104 x10^3/uL (140-400) Neutrophils (%) (Auto) 93 % (31-73) Lymphocytes (%) (Auto) 3 % (24-48) Monocytes (%) (Auto) 4 % (0-9) Eosinophils (%) (Auto) 0 % (0-3) Basophils (%) (Auto) 0 % (0-3) Neutrophils # (Auto) 42.6 x10^3uL (1.8-7.7) Lymphocytes # (Auto) 1.2 x10^3/uL (1.0-4.8) Monocytes # (Auto) 1.9 x10^3/uL (0.0-1.1) Eosinophils # (Auto) 0.0 x10^3/uL (0.0-0.7) Basophils # (Auto) 0.0 x10^3/uL (0.0-0.2) Sodium Level 140 mmol/L (136-145) Potassium Level 4.1 mmol/L (3.5-5.1) Chloride Level 109 mmol/L (98-107) Carbon Dioxide Level 22 mmol/L (21-32) Anion Gap 9 (6-14) Blood Urea Nitrogen 18 mg/dL (7-20) Creatinine 1.1 mg/dL (0.6-1.0) Estimated GFR (Cockcroft-Gault) 55.0 Glucose Level 114 mg/dL (70-99) Calcium Level 6.9 mg/dL (8.5-10.1) C-Reactive Protein, Quantitative 140.6 mg/L (0-3.3) Procalcitonin 40.01 ng/mL (0.00-0.10) Microbiology 11/25/16 Blood Culture - Preliminary, Resulted NO GROWTH AFTER 1 DAY Medications Current Medications Ondansetron HCl (Zofran) 4 mg 1X ONCE IV Last administered on 11/25/16t 02:52 ; Start 11/25/16 at 02:15; Stop 11/25/16 at 02:17; Status DC Sodium Chloride 1,000 ml @ 1,000 mls/hr 1X ONCE IV Last administered on 02:52; Start 11/25/16 at 02:15; Stop 11/25/16 at 03:14; Status DC Ketorolac Tromethamine (Toradol) 15 mg 1X ONCE IV Last administered on 04:52; Start 11/25/16 at 04:45; Stop 11/25/16 at 04:46; Status DC Acetaminophen (Tylenol) 650 mg 1X ONCE PO Last administered on 11/25/16 04:53 ; Start 11/25/16 at 04:45; Stop 11/25/16 at 04:46; Status DC Hydromorphone HCl (Dilaudid) 1 mg 1X ONCE IV Last administered on 11/25/16 04 :52; Start 11/25/16 at 04:45; Stop 11/25/16 at 04:46; Status DC Sodium Chloride 1,000 ml @ 1,000 mls/hr 1X ONCE IV Last administered on 04:53; Start 11/25/16 at 04:45; Stop 11/25/16 at 05:44; Status DC Ceftriaxone Sodium 50 ml @ 100 mls/hr 1X ONCE IV Last administered on 04:53; Start 11/25/16 at 04:45; Stop 11/25/16 at 05:14; Status DC Iohexol (Omnipaque 300 Mg/ml) 75 ml 1X ONCE IV Last administered on 11/25/16 05:26; Start 11/25/16 at 05:00; Stop 11/25/16 at 05:01; Status DC Ceftriaxone Sodium (Rocephin Im) 1 gm STK-MED ONCE IM ; Start 11/25/16 at 04:37 ; Stop 11/25/16 at 04:38; Status DC Info (Do NOT chart on this entry -- for MONITORING) 1 each PRN DAILY PRN MC SEE COMMENTS; Start 11/25/16 at 05:00; Stop 11/27/16 at 04:59 Sodium Chloride 1,000 ml @ 2,790 mls/hr Q22M IV ; Start 11/25/16 at 06:15; Stop 11/25/16 at 07:14; Status DC Ondansetron HCl (Zofran) 4 mg PRN Q8HRS PRN IV NAUSEA/VOMITING; Start 11/25/16 at 06:15; Stop 11/25/16 at 09:40; Status DC Morphine Sulfate 4 mg PRN Q2HR PRN IV PAIN Last administered on 11/25/16 17:47 ; Start 11/25/16 at 06:15; Stop 11/26/16 at 06:14; Status DC Acetaminophen (Tylenol) 650 mg PRN Q4HRS PRN PO FEVER Last administered on 11/25 07:48; Start 11/25/16 at 06:15; Stop 11/26/16 at 06:14; Status DC Multivitamins 10 ml/Folic Acid 1 mg/Thiamine HCl 100 mg/Sodium Chloride 1,011.2 ml @ 1,000 mls/ hr 1X ONCE IV Last administered on 11/25/16 06:20; Start at 06:30; Stop 11/25/16 at 07:30; Status DC Ondansetron HCl (Zofran) 4 mg PRN Q6HRS PRN IV NAUSEA/VOMITING; Start 11/25/16 at 09:37; Stop 11/26/16 at 09:36; Status DC Loperamide HCl (Imodium) 2 mg PRN Q15MIN PRN PO DIARRHEA; Start 11/25/16 at 09: 45 Levofloxacin/ Dextrose 100 ml @ 100 mls/hr Q24H IV Last administered on 10:28; Start 11/25/16 at 10:00 Permethrin (Elimite) 1 malik DAILY TP ; Start 11/26/16 at 09:00; Status UNV Prednisone (Prednisone) 40 mg DAILY PO Last administered on 11/26/16 09:43; Start 11/25/16 at 10:00 Non-Formulary Medication 118 ml 1X TP ; Start 11/25/16 at 09:45; Status UNV Sodium Chloride 1,000 ml @ 125 mls/hr Q8H IV Last administered on 11/26/16 09 :44; Start 11/25/16 at 09:45 Sodium Chloride 1,000 ml @ 1,000 mls/hr 1X ONCE IV Last administered on 15:05; Start 11/25/16 at 15:00; Stop 11/25/16 at 15:59; Status DC Potassium Chloride 100 ml @ 100 mls/hr Q1H IV Last administered on 11/26/16 00:38; Start 11/25/16 at 16:00; Stop 11/25/16 at 19:59; Status DC Norepinephrine Bitartrate 250 ml @ 0 mls/hr CONT PRN IV SEE I/O RECORD; Start 11/25/16 at 15:00 Prochlorperazine Edisylate (Compazine) 10 mg PRN Q6HRS PRN IV NAUSEA/VOMITING; Start 11/25/16 at 15:15 Lorazepam (Ativan) 2 mg PRN Q4HRS PRN IV ANXIETY / AGITATION Last administered on 11/26/16 04:04; Start 11/25/16 at 17:15 Hydromorphone HCl (Dilaudid) 0.4 mg PRN Q4HRS PRN IVP PAIN Last administered on 11/26/16 04:05; Start 11/25/16 at 17:15 Fentanyl Citrate (Fentanyl 2ml Vial) 25 mcg PRN Q2HR PRN IV PAIN; Start at 17:15 Lorazepam (Ativan) 2 mg STK-MED ONCE .ROUTE ; Start 11/25/16 at 17:30; Stop at 18:28; Status DC Piperacillin Sod/ Tazobactam Sod 3.375 gm/Sodium Chloride 50 ml @ 100 mls/hr Q6HRS IV Last administered on 11/26/16 05:44; Start 11/25/16 at 20:00 Metronidazole 100 ml @ 100 mls/hr Q8HRS IV Last administered on 11/26/16 06: 44; Start 11/25/16 at 22:00 Alprazolam (Xanax) 1 mg PRN Q4HRS PRN PO ANXIETY / AGITATION; Start 11/25/16 at 21:15 Diazepam (Valium) 5 mg PRN TID PRN IV WITHDRAWAL IRRITABILITY; Start 11/25/16 at 21:15 Haloperidol Lactate (Haldol) 5 mg PRN Q4HRS PRN IM AGITATION; Start 11/25/16 at 21:15 Ziprasidone (Geodon Im) 10 mg 1X ONCE IM ; Start 11/25/16 at 21:30; Stop at 21:31; Status Cancel Ziprasidone (Geodon Im) 10 mg PRN 1X PRN IM ANXIETY / AGITATION; Start at 22:30 Iron Sucrose 500 mg/Sodium Chloride 275 ml @ 78.571 mls/ hr DAILY IV ; Start at 10:30; Stop 11/27/16 at 12:29 Iron Sucrose 500 mg/Sodium Chloride 275 ml @ 78.571 mls/ hr 1X ONCE IV ; Start 11/27/16 at 09:30; Stop 11/27/16 at 12:59; Status UNV Nicotine (Nicoderm Cq 21mg) 1 patch DAILY TD Last administered on 11/26/16t 10: 30; Start 11/26/16 at 10:00 Active Scripts Active Clobex (Clobetasol Propionate) 118 Ml Shampoo 118 Ml TP 1X Prednisone 20 Mg Tablet 40 Mg PO DAILY Permethrin 60 Gm Cream..g. 1 Malik TP ONCE Prednisone 20 Mg Tablet 40 Mg PO DAILY Augmentin 875-125 Tablet (Amoxicillin/Potassium Clav) 1 Each Tablet 1 Tab PO BID Vitals/I & O Vital Sign - Last 24 Hours 11/25/16 11/25/16 11/25/16 11/25/16 14:49 14:53 16:00 16:15 Temp 95.5 99.3 98.6 95.5 99.3 98.6 Pulse 103 103 103 101 Resp 20 24 B/P (MAP) 66/34 (45) 87/32 (50) 87/32 (50) 98/45 (62) Pulse Ox 100 100 100 O2 Delivery Room Air Nasal Cannula Nasal Cannula Room Air O2 Flow Rate 2.0 2.0 11/25/16 11/25/16 11/25/16 11/25/16 16:30 16:32 17:00 17:30 Pulse 100 92 94 B/P (MAP) 97/61 (73) 106/69 (81) 101/72 (82) Pulse Ox 99 99 99 O2 Delivery Room Air Room Air Room Air Room Air 11/25/16 11/25/16 11/25/16 11/25/16 17:47 18:17 19:00 19:15 Pulse 88 102 B/P (MAP) 107/72 (84) Pulse Ox 100 100 96 95 O2 Delivery Room Air Room Air Room Air Room Air 11/25/16 11/25/16 11/25/16 11/25/16 19:30 19:45 20:00 20:00 Pulse 100 96 86 B/P (MAP) 97/62 (74) 100/77 (85) Pulse Ox 97 96 99 O2 Delivery Room Air Room Air Room Air Room Air 11/25/16 11/25/16 11/25/16 11/25/16 20:15 20:30 20:45 21:00 Pulse 68 64 104 94 B/P (MAP) 106/76 (86) 113/74 (87) 87/52 (64) 66/54 (58) Pulse Ox 98 98 96 98 O2 Delivery Room Air Room Air Room Air Room Air 11/25/16 11/25/16 11/25/16 11/25/16 21:15 21:30 21:39 21:45 Pulse 92 94 66 Resp 24 B/P (MAP) 105/68 (80) 101/62 (75) Pulse Ox 97 96 96 96 O2 Delivery Room Air Room Air Room Air Room Air O2 Flow Rate 2.0 11/25/16 11/25/16 11/25/16 11/25/16 22:00 22:15 22:30 22:45 Temp 98.8 98.8 Pulse 64 62 64 72 B/P (MAP) 112/65 (81) 114/64 (81) 110/56 (74) 106/63 (77) Pulse Ox 98 100 100 100 O2 Delivery Room Air Nasal Cannula Nasal Cannula Nasal Cannula O2 Flow Rate 2.0 2.0 2.0 11/25/16 11/25/16 11/25/16 11/25/16 23:00 23:15 23:30 23:45 Pulse 70 76 68 64 B/P (MAP) 112/59 (76) 117/68 (84) 105/64 (78) 122/70 (87) Pulse Ox 100 100 100 100 O2 Delivery Nasal Cannula Nasal Cannula Nasal Cannula Nasal Cannula O2 Flow Rate 2.0 2.0 2.0 2.0 11/26/16 11/26/16 11/26/16 11/26/16 00:00 00:00 00:15 00:30 Pulse 70 68 64 Resp 15 16 17 B/P (MAP) 112/63 (79) 110/74 (86) 119/65 (83) Pulse Ox 100 100 100 O2 Delivery Room Air Nasal Cannula Nasal Cannula Nasal Cannula O2 Flow Rate 2.0 2.0 2.0 11/26/16 11/26/16 11/26/16 11/26/16 00:45 01:00 01:15 01:30 Pulse 64 62 66 94 Resp 17 16 22 17 B/P (MAP) 116/69 (85) 117/65 (82) 100/66 (77) 108/64 (79) Pulse Ox 100 100 100 100 O2 Delivery Nasal Cannula Nasal Cannula Nasal Cannula Nasal Cannula O2 Flow Rate 2.0 2.0 2.0 2.0 11/26/16 11/26/16 11/26/16 11/26/16 01:45 02:00 02:15 02:30 Pulse 64 64 62 62 Resp 18 17 19 19 B/P (MAP) 118/66 (83) 118/68 (85) 124/78 (93) 124/78 (93) Pulse Ox 100 100 100 100 O2 Delivery Nasal Cannula Nasal Cannula Nasal Cannula Nasal Cannula O2 Flow Rate 2.0 2.0 2.0 2.0 11/26/16 11/26/16 11/26/16 11/26/16 02:45 03:00 03:15 03:30 Pulse 60 60 60 60 Resp 17 17 18 19 B/P (MAP) 116/71 (86) 118/70 (86) 109/65 (80) 105/53 (70) Pulse Ox 100 100 100 100 O2 Delivery Nasal Cannula Nasal Cannula Nasal Cannula Nasal Cannula O2 Flow Rate 2.0 2.0 2.0 2.0 11/26/16 11/26/16 11/26/16 11/26/16 03:45 04:00 04:00 04:05 Pulse 60 60 Resp 17 19 18 B/P (MAP) 125/77 (93) 125/77 (93) Pulse Ox 100 100 100 O2 Delivery Nasal Cannula Nasal Cannula Nasal Cannula Nasal Cannula O2 Flow Rate 2.0 2.0 2.0 2.0 11/26/16 11/26/16 11/26/16 11/26/16 04:15 04:30 04:39 04:45 Pulse 70 70 78 Resp 20 16 18 25 B/P (MAP) 118/71 (87) 117/69 (85) 109/65 (80) Pulse Ox 100 100 100 99 O2 Delivery Nasal Cannula Nasal Cannula Nasal Cannula Nasal Cannula O2 Flow Rate 2.0 2.0 2.0 2.0 11/26/16 11/26/16 11/26/16 11/26/16 05:00 05:15 05:30 05:45 Pulse 74 76 76 76 Resp 17 B/P (MAP) 114/76 (89) 110/70 (83) Pulse Ox 100 100 99 100 O2 Delivery Nasal Cannula Nasal Cannula Nasal Cannula Nasal Cannula O2 Flow Rate 2.0 2.0 2.0 2.0 11/26/16 11/26/16 11/26/16 11/26/16 06:00 07:00 08:00 08:00 Temp 97.6 97.6 Pulse 74 84 84 Resp 19 20 18 B/P (MAP) 114/71 (85) 111/70 (84) 110/58 (75) Pulse Ox 100 100 100 O2 Delivery Nasal Cannula Nasal Cannula Nasal Cannula Nasal Cannula O2 Flow Rate 2.0 2.0 2.0 2.0 11/26/16 11/26/16 11/26/16 09:00 10:00 11:00 Pulse 112 88 92 Resp 26 22 19 B/P (MAP) 123/68 (86) 111/68 (82) 110/62 (78) Pulse Ox 97 98 99 O2 Delivery Room Air Room Air Room Air Intake and Output 11/25/16 11/25/16 11/26/16 15:00 23:00 07:00 Intake Total 240 ml 3229.74 ml Output Total 1600 ml 700 ml Balance -1360 ml 2529.74 ml NACHO BERNAL III DO Nov 26, 2016 11:54
[2016-11-26] MEDS: IRON SUCROSE COMPLEX 500 MG in IV NORMAL SALINE 250ML 250 ML IV SCH (12:56)
--- NOTE | 2016-11-26 13:34 | CONS ---
DATE OF CONSULTATION: 11/26/2016 ONCOLOGY CONSULT NOTE REFERRING PROVIDER: Dr. Diana. REASON FOR CONSULTATION: Reported history of breast cancer. HISTORY OF PRESENT ILLNESS: The patient is a 41-year-old female whose mom 3 months ago. This seems to have especially triggered her history of chronic polysubstance abuse, regularly using methamphetamine and also being a chain smoker. She was admitted with reported nausea, vomiting, diarrhea, abdominal pain and CT showing enteritis. She also complained of three month history of vaginal bleeding. She has not had any regular health care. She appears to be quite ill at this time. She is very anxious and states that she is withdrawing currently. However, she also continues falling asleep mid sentence. Per chart review, she has a history of breast cancer; however, she has never had any breast surgeries per her report. She says that she "never wanted to be cut on." I was not able to locate any oncology records in the system. She and her can provide no additional information on this reported breast cancer history. PAST MEDICAL HISTORY: Possibly breast cancer, apparently without any treatment I am uncertain if this diagnosis is actually accurate, GERD, chronic addiction, schizophrenia. PAST SURGICAL HISTORY: Negative per the patient. FAMILY HISTORY: Mom a few months ago from COPD. SOCIAL HISTORY: She is but her does not know much of her health history. She does admit to regular methamphetamine use and smoking at least 3 packs a day chronically. She states that she has not been drinking any alcohol. ALLERGIES: No known drug allergies. CURRENT MEDICATIONS: Flagyl, Haldol, Valium, Xanax, Zosyn, fentanyl, Dilaudid, Ativan, Compazine, prednisone, Levaquin, normal saline and Imodium. REVIEW OF SYSTEMS: Ten point review of systems attempted, but somewhat limited due to the patient's frequently falling asleep and deemed a very poor historian at this time, only pertinent positives as noted above. PHYSICAL EXAMINATION: VITAL SIGNS: Temperature 97.6, pulse 84-112, blood pressure 110/58, 100% O2 on 2 liters. GENERAL: She is extremely anxious, lethargic. She oscillates between waking up and crying continuously versus falling asleep mid sentence. HEENT: Her eyes are closed the entire time. Mucous membranes are dry. CARDIOVASCULAR: Heart is regular in rhythm and rate. LUNGS: Clear to auscultation bilaterally. ABDOMEN: Soft, nontender. EXTREMITIES: No edema. NEUROLOGIC: Very lethargic. CHEST: No evidence of any obvious previous breast surgery. IMAGING AND LABORATORY DATA: WBC on admission was 2.3 but jumped 45 with strong neutrophilic predominance today, hemoglobin 10.2 on admit, down to 8.4 today and platelets 175 on admit, down to 104, her MCV is 72, creatinine 1.1. Lactate 2.6. Serum iron 11, percent iron saturation is 4, AST 94, ALT 63, alkaline phosphatase 178, CRP 140. TSH was normal. Procalcitonin 40. Blood cultures are negative after 1 day. Chest x-ray with no significant findings. CT of the abdomen/pelvis with no acute processes, possible enteritis. ASSESSMENT AND PLAN: The patient is a 41-year-old female with the following medical problems: 1. Iron deficiency anemia likely due to chronic blood loss from possible vaginal bleeding. I have ordered a total of 1000 mg of Venofer to be given over today/tomorrow. She will likely need more IV iron in the future, but I suspect she will not have any follow up based on her history of not pursuing any medical care. I would suggest she be discharged on [id number] oral iron at least once a day. Gynecology has been consulted for further evaluation. 2. Reported breast cancer history. She and her cannot provide any details of this for me. She has no records available on the [facility] system. She does state she "never wanted any surgery" and that she has not had any treatment done. Regardless, this does not appear to be her largest problem at this time. 3. Polysubstance abuse with methamphetamine withdrawal, nicotine dependence. She is a "chain smoker" per her . I will order a Nicoderm 21 mg patch. 4. Neutrophilia. Reactive, either to withdrawal or possible sepsis for which she is receiving antibiotics. Thank you for allowing me to participate in her care. CELIA ALVAREZ DO DR: ZOEY/shayy JOB#: [id number] / [id number] POLLY
[2016-11-26 14:20] LABS: HIV ANTIBODY Non Reactive (Non Reactive)
--- NOTE | 2016-11-26 14:26 | RAD ---
Portable chest, 11/26/2016, 3:30 PM: History: Check PICC placement Comparison is made to the study of earlier the same day. A right PICC is in place in satisfactory position with its tip lying in the mid superior vena cava. The heart size is unchanged. There are mild patchy basilar opacities which are also unchanged. There is no evidence of pneumothorax or pleural fluid. No new abnormality is detected. IMPRESSION: 1. The right PICC is in satisfactory position. 2. Mild unchanged bibasilar atelectasis/infiltrate.
--- NOTE | 2016-11-26 15:09 | RAD ---
Chest radiograph 11/26/2016 at 1442 hours Indication: PICC placement Comparison: Chest radiograph 11/26/2016 at 1406 hours Technique: Single portable upright view of the chest is provided. Findings: Similar appearance of the cardiomediastinal silhouette. Right upper extremity PICC is identified with the distal tip projecting over the superior vena cava. No pneumothorax. Lungs are similar in appearance. No pleural effusions or pulmonary vascular congestion. Impression: Right upper extremity PICC with the distal tip projecting over the superior vena cava. No pneumothorax.
--- NOTE | 2016-11-26 15:46 | RAD ---
Chest radiograph 11/26/2016 at 1536 hours Indication: PICC placement Comparison: Chest radiograph 11/26/2016 at 1442 hours Technique: Single portable upright view of the chest is provided. Findings: Right upper extremity PICC is identified the distal tip projecting over the cavoatrial junction. Similar appearance of the cardiomediastinal silhouette and chest. No pleural effusions, pulmonary vascular congestion or pneumothorax. Impression: Right upper extremity PICC with distal tip projecting over the cavoatrial junction. No pneumothorax.
[2016-11-26] MEDS ORDERED: VANCOMYCIN 1.75 GM in IV NORMAL SALINE 500ML BAG 500 ML IV ONE (16:00)
[2016-11-26] MEDS: VANCOMYCIN PER PHARMACY MC PRN (17:14)
[2016-11-27] VITALS (15 sets, daily range): BP systolic 100–123; BP diastolic 31–86
[2016-11-27 04:25] LABS: BASO % 0 % (0-3); EOS % 1 % (0-3); HEMATOCRIT 25.2 % (36.0-47.0); HEMOGLOBIN 7.9 g/dL (12.0-15.5); LYMPH # 2.2 x10^3/uL (1.0-4.8); LYMPH % 9 % (24-48); MEAN CORPUSCULAR HEMOGLOBIN 23 pg (25-35); MEAN CORPUSCULAR HGB CONC 31 g/dL (31-37); MEAN CORPUSCULAR VOLUME 72 fL (79-100); MONO % 5 % (0-9); NEUT % 86 % (31-73); PLATELET COUNT 87 x10^3/uL (140-400); RED CELL DISTRIBUTION WIDTH 17.7 % (11.5-14.5); WHITE BLOOD COUNT 25.2 x10^3/uL (4.0-11.0)
[2016-11-27 05:29] LABS: % EOS 1 % (0-5); ANISOCYTOSIS SLIGHT; HYPOCHROMIA MOD; MICROCYTOSIS SLIGHT; PLT ESTIMATE DECREASED (ADEQUATE); TOXIC VACUOLATION SLIGHT
[2016-11-27] MEDS: PIPERACILLIN/TAZOBACTAM 3.375 GM in IV NORMAL SALINE 50ML 50 ML IV SCH ×4 (05:36→23:37)
[2016-11-27] MEDS: VANCOMYCIN 1 GM in IV NORMAL SALINE 250ML 250 ML IV SCH ×2 (06:11→17:39)
[2016-11-27] MEDS: IV NORMAL SALINE 1000ML BAG 1,000 ML IV SCH ×3 (06:13→14:45)
--- NOTE | 2016-11-27 08:34 | PDOC ---
Infectious Disease Note Subjective Subjective Arousable but not answering questions ROS ROS unobtainable -by choice Vital Sign Vital Signs Vital Signs Date Time Temp Pulse Resp B/P (MAP) Pulse Ox O2 Delivery O2 Flow Rate FiO2 11/27/16 08:00 Room Air 11/27/16 07:00 90 21 102/61 (75) 96 11/27/16 04:00 2.0 11/26/16 21:00 99.7 99.7 Physical Exam PHYSICAL EXAM GENERAL: propped up in bed, NAD HEENT: Oral cavity dry, poor dentition NECK: Supple LUNGS: Clear anteriorly, nonlabored HEART: S1 and S2 ABDOMEN: Soft, NT to light palpation EXTREMITIES: no cyanosis or edema. SKIN: No rash NEUROLOGIC: Lethargic but more responsive than yesterday RUE-PICC. clean Labs Lab Laboratory Tests Test 11/26/16 08:45 11/27/16 04:20 Cortisol AM Sample 1.1 ug/dL (6.2-19.4) White Blood Count 25.2 x10^3/uL (4.0-11.0) Red Blood Count 3.50 x10^6/uL (3.50-5.40) Hemoglobin 7.9 g/dL (12.0-15.5) Hematocrit 25.2 % (36.0-47.0) Mean Corpuscular Volume 72 fL (79-100) Mean Corpuscular Hemoglobin 23 pg (25-35) Mean Corpuscular Hemoglobin Concent 31 g/dL (31-37) Red Cell Distribution Width 17.7 % (11.5-14.5) Platelet Count 87 x10^3/uL (140-400) Neutrophils (%) (Auto) 86 % (31-73) Lymphocytes (%) (Auto) 9 % (24-48) Monocytes (%) (Auto) 5 % (0-9) Eosinophils (%) (Auto) 1 % (0-3) Basophils (%) (Auto) 0 % (0-3) Neutrophils # (Auto) 21.6 x10^3uL (1.8-7.7) Lymphocytes # (Auto) 2.2 x10^3/uL (1.0-4.8) Monocytes # (Auto) 1.2 x10^3/uL (0.0-1.1) Eosinophils # (Auto) 0.1 x10^3/uL (0.0-0.7) Basophils # (Auto) 0.0 x10^3/uL (0.0-0.2) Segmented Neutrophils % 80 % (35-66) Band Neutrophils % 14 % (0-9) Lymphocytes % 5 % (24-48) Eosinophils % 1 % (0-5) Toxic Vacuolation Slight Platelet Estimate Decreased (ADEQUATE) Hypochromasia Mod Anisocytosis Slight Microcytosis Slight Objective Assessment Septic shock -better Acute Encephalopathy - improving Leukopenia, now leukocytosis - on Prednisone. better Anion gap metabolic acidosis. Acute abdomen - better Dehydration. Gastroenteritis. Lower back pain. History of methamphetamine abuse and retirement time. ? Withdrawl Schizophrenia/Bipolar h/o breast cancer Plan Plan of Care Cont Zosyn, Levaquin & Flagyl Add Vanc Steroids Stool for C. diff not collected - d/w nursing f/u labs and cultures Supportive care ÁLVARO WILLIAM MD Nov 27, 2016 08:34
[2016-11-27] MEDS: NICOTINE 21MG PATCH. TD SCH (09:06)
[2016-11-27] MEDS: predniSONE 20 MG TABLET PO SCH (09:06)
[2016-11-27] MEDS ORDERED: IRON SUCROSE COMPLEX 500 MG in IV NORMAL SALINE 250ML 250 ML IV ONE (09:30)
--- NOTE | 2016-11-27 09:44 | PDOC ---
Subjective: Subjective: Onc f/u- Iron def anemia Remains very tearful Repeatedly states "I want to go home." Cannot recall any details of initially reported breast caner history Off pressors Objective: Vital Signs: Vital Signs Date Time Temp Pulse Resp B/P (MAP) Pulse Ox O2 Delivery O2 Flow Rate FiO2 11/27/16 09:00 90 14 104/31 (55) 95 Room Air 11/27/16 08:00 98.9 98.9 11/27/16 04:00 2.0 Physical Exam: Heart: Other (tachycardic but reg in rhythm) Extremities: No edema General: Alert, Other (more alert but does not answer any questions other than repeat "I want to go home.") Lungs: Other (no respiratory distress) Psych/Mental Status: Other (very tearful, crying constantly) Labs/Imaging: CBC with decreased neutrophilia, plt slight trend down Assessment/Plan A/P: 1. Iron deficiency anemia likely due to chronic blood loss from vaginal bleeding x 3 months - S/p 1000 mg of Venofer after today's dose - Recommend po ferrous sulfate 325 mg at least daily x 6 months - Recommended outpt f/u with Dr. Stoner, otherwise this will not get better unless we address cause of chronic bleeding 2. Reported breast cancer history. She and her cannot provide any details of this for me. She has no records available on the [employer] system. - Not an active issue right now; will not proceed with further questioning. 3. Polysubstance abuse with methamphetamine withdrawal, nicotine dependence. - SW consulted for suicidal ideation. - Nicoderm in place 4. Neutrophilia, reactive to sepsis, steroids-- Improving today. 5. Thrombocytopenia. Likely due to sepsis. Monitor. CELIA ALVAREZ DO Nov 27, 2016 09:44
[2016-11-27] MEDS: IRON SUCROSE COMPLEX 500 MG in IV NORMAL SALINE 250ML 250 ML IV SCH (09:59)
[2016-11-27] MEDS: VANCOMYCIN PER PHARMACY MC PRN (11:04)
--- NOTE | 2016-11-27 11:16 | PDOC ---
PROGRESS NOTES Chief Complaint Chief Complaint Abdominal pain Diarrhea Vomiting Low back pain GERD Anxiety Addictions Bipolar disorder Schizophrenia Breast cancer History of Present Illness History of Present Illness Patient was seen in the ICU for severe sepsis. Patient was awake, but not alert. Patient appeared weak. Undergoing meth withdrawal. Patient stated she was in pain. Discussed case with nurse. WBC has decreased to 25.2. Cortisol level in am was 1.1. Vitals Vitals Vital Signs Date Time Temp Pulse Resp B/P (MAP) Pulse Ox O2 Delivery O2 Flow Rate FiO2 11/27/16 10:00 104 24 106/65 (79) 97 Room Air 11/27/16 08:00 98.9 98.9 11/27/16 04:00 2.0 Physical Exam General: No acute distress, Other (awake) Heart: Regular rate, No murmurs, Other (tachycardic but reg in rhythm) Lungs: Clear, Other (no r/r/w) Abdomen: Soft, Other (tenderness to epigastric area) Extremities: No clubbing, No edema Skin: No rashes, No breakdown, No significant lesion Labs LABS Laboratory Tests Test 11/27/16 04:20 White Blood Count 25.2 x10^3/uL (4.0-11.0) Red Blood Count 3.50 x10^6/uL (3.50-5.40) Hemoglobin 7.9 g/dL (12.0-15.5) Hematocrit 25.2 % (36.0-47.0) Mean Corpuscular Volume 72 fL (79-100) Mean Corpuscular Hemoglobin 23 pg (25-35) Mean Corpuscular Hemoglobin Concent 31 g/dL (31-37) Red Cell Distribution Width 17.7 % (11.5-14.5) Platelet Count 87 x10^3/uL (140-400) Neutrophils (%) (Auto) 86 % (31-73) Lymphocytes (%) (Auto) 9 % (24-48) Monocytes (%) (Auto) 5 % (0-9) Eosinophils (%) (Auto) 1 % (0-3) Basophils (%) (Auto) 0 % (0-3) Neutrophils # (Auto) 21.6 x10^3uL (1.8-7.7) Lymphocytes # (Auto) 2.2 x10^3/uL (1.0-4.8) Monocytes # (Auto) 1.2 x10^3/uL (0.0-1.1) Eosinophils # (Auto) 0.1 x10^3/uL (0.0-0.7) Basophils # (Auto) 0.0 x10^3/uL (0.0-0.2) Segmented Neutrophils % 80 % (35-66) Band Neutrophils % 14 % (0-9) Lymphocytes % 5 % (24-48) Eosinophils % 1 % (0-5) Toxic Vacuolation Slight Platelet Estimate Decreased (ADEQUATE) Hypochromasia Mod Anisocytosis Slight Microcytosis Slight Review of Systems Review of Systems Patient complains of general pain. Patient complains of weakness. Assessment and Plan Assessmemt and Plan Problems Medical Problems: (1) Abdominal pain Status: Acute (2) Dehydration Status: Acute (3) Fever Status: Acute (4) Lower back pain Status: Acute (5) Methamphetamine abuse Status: Acute (6) Nausea vomiting and diarrhea Status: Acute Assessment: Abdominal pain Diarrhea Vomiting Low back pain GERD Anxiety Addictions Bipolar disorder Schizophrenia Breast cancer Plan: 1. Continue ICU monitoring 2. Continue iron infusion 3. Continue levoquin 4. Continue vancomycin 5. Stop steroids 6. Recheck labs 7. Appreciate subspecialty input Problems: Comment Review of Relevant I have reviewed the following items jesusita (where applicable) has been applied. Labs Laboratory Tests Test 11/25/16 16:30 11/26/16 05:20 11/26/16 08:45 11/27/16 04:20 Nasal Screen MRSA (PCR) Negative (Negative) White Blood Count 45.7 x10^3/uL (4.0-11.0) 25.2 x10^3/uL (4.0-11.0) Red Blood Count 3.69 x10^6/uL (3.50-5.40) 3.50 x10^6/uL (3.50-5.40) Hemoglobin 8.4 g/dL (12.0-15.5) 7.9 g/dL (12.0-15.5) Hematocrit 26.3 % (36.0-47.0) 25.2 % (36.0-47.0) Mean Corpuscular Volume 71 fL (79-100) 72 fL (79-100) Mean Corpuscular Hemoglobin 23 pg (25-35) 23 pg (25-35) Mean Corpuscular Hemoglobin Concent 32 g/dL (31-37) 31 g/dL (31-37) Red Cell Distribution Width 17.4 % (11.5-14.5) 17.7 % (11.5-14.5) Platelet Count 104 x10^3/uL (140-400) 87 x10^3/uL (140-400) Neutrophils (%) (Auto) 93 % (31-73) 86 % (31-73) Lymphocytes (%) (Auto) 3 % (24-48) 9 % (24-48) Monocytes (%) (Auto) 4 % (0-9) 5 % (0-9) Eosinophils (%) (Auto) 0 % (0-3) 1 % (0-3) Basophils (%) (Auto) 0 % (0-3) 0 % (0-3) Neutrophils # (Auto) 42.6 x10^3uL (1.8-7.7) 21.6 x10^3uL (1.8-7.7) Lymphocytes # (Auto) 1.2 x10^3/uL (1.0-4.8) 2.2 x10^3/uL (1.0-4.8) Monocytes # (Auto) 1.9 x10^3/uL (0.0-1.1) 1.2 x10^3/uL (0.0-1.1) Eosinophils # (Auto) 0.0 x10^3/uL (0.0-0.7) 0.1 x10^3/uL (0.0-0.7) Basophils # (Auto) 0.0 x10^3/uL (0.0-0.2) 0.0 x10^3/uL (0.0-0.2) Sodium Level 140 mmol/L (136-145) Potassium Level 4.1 mmol/L (3.5-5.1) Chloride Level 109 mmol/L (98-107) Carbon Dioxide Level 22 mmol/L (21-32) Anion Gap 9 (6-14) Blood Urea Nitrogen 18 mg/dL (7-20) Creatinine 1.1 mg/dL (0.6-1.0) Estimated GFR (Cockcroft-Gault) 55.0 Glucose Level 114 mg/dL (70-99) Calcium Level 6.9 mg/dL (8.5-10.1) C-Reactive Protein, Quantitative 140.6 mg/L (0-3.3) Procalcitonin 40.01 ng/mL (0.00-0.10) Cytomegalovirus IgG Antibody 3.80 U/mL (0.00-0.59) Cytomegalovirus IgM Antibody <30.0 AU/mL (0.0-29.9) HIV (1&2) Antibody Non reactive (Non Reactive) Cortisol AM Sample 1.1 ug/dL (6.2-19.4) Segmented Neutrophils % 80 % (35-66) Band Neutrophils % 14 % (0-9) Lymphocytes % 5 % (24-48) Eosinophils % 1 % (0-5) Toxic Vacuolation Slight Platelet Estimate Decreased (ADEQUATE) Hypochromasia Mod Anisocytosis Slight Microcytosis Slight Laboratory Tests Test 11/27/16 04:20 White Blood Count 25.2 x10^3/uL (4.0-11.0) Red Blood Count 3.50 x10^6/uL (3.50-5.40) Hemoglobin 7.9 g/dL (12.0-15.5) Hematocrit 25.2 % (36.0-47.0) Mean Corpuscular Volume 72 fL (79-100) Mean Corpuscular Hemoglobin 23 pg (25-35) Mean Corpuscular Hemoglobin Concent 31 g/dL (31-37) Red Cell Distribution Width 17.7 % (11.5-14.5) Platelet Count 87 x10^3/uL (140-400) Neutrophils (%) (Auto) 86 % (31-73) Lymphocytes (%) (Auto) 9 % (24-48) Monocytes (%) (Auto) 5 % (0-9) Eosinophils (%) (Auto) 1 % (0-3) Basophils (%) (Auto) 0 % (0-3) Neutrophils # (Auto) 21.6 x10^3uL (1.8-7.7) Lymphocytes # (Auto) 2.2 x10^3/uL (1.0-4.8) Monocytes # (Auto) 1.2 x10^3/uL (0.0-1.1) Eosinophils # (Auto) 0.1 x10^3/uL (0.0-0.7) Basophils # (Auto) 0.0 x10^3/uL (0.0-0.2) Segmented Neutrophils % 80 % (35-66) Band Neutrophils % 14 % (0-9) Lymphocytes % 5 % (24-48) Eosinophils % 1 % (0-5) Toxic Vacuolation Slight Platelet Estimate Decreased (ADEQUATE) Hypochromasia Mod Anisocytosis Slight Microcytosis Slight Microbiology 11/25/16 Blood Culture - Preliminary, Resulted NO GROWTH AFTER 2 DAYS Medications Current Medications Ondansetron HCl (Zofran) 4 mg 1X ONCE IV Last administered on 11/25/16 02:52 ; Start 11/25/16 at 02:15; Stop 11/25/16 at 02:17; Status DC Sodium Chloride 1,000 ml @ 1,000 mls/hr 1X ONCE IV Last administered on 02:52; Start 11/25/16 at 02:15; Stop 11/25/16 at 03:14; Status DC Ketorolac Tromethamine (Toradol) 15 mg 1X ONCE IV Last administered on 04:52; Start 11/25/16 at 04:45; Stop 11/25/16 at 04:46; Status DC Acetaminophen (Tylenol) 650 mg 1X ONCE PO Last administered on 11/25/16 04:53 ; Start 11/25/16 at 04:45; Stop 11/25/16 at 04:46; Status DC Hydromorphone HCl (Dilaudid) 1 mg 1X ONCE IV Last administered on 11/25/16 04 :52; Start 11/25/16 at 04:45; Stop 11/25/16 at 04:46; Status DC Sodium Chloride 1,000 ml @ 1,000 mls/hr 1X ONCE IV Last administered on 04:53; Start 11/25/16 at 04:45; Stop 11/25/16 at 05:44; Status DC Ceftriaxone Sodium 50 ml @ 100 mls/hr 1X ONCE IV Last administered on 04:53; Start 11/25/16 at 04:45; Stop 11/25/16 at 05:14; Status DC Iohexol (Omnipaque 300 Mg/ml) 75 ml 1X ONCE IV Last administered on 11/25/16 05:26; Start 11/25/16 at 05:00; Stop 11/25/16 at 05:01; Status DC Ceftriaxone Sodium (Rocephin Im) 1 gm STK-MED ONCE IM ; Start 11/25/16 at 04:37 ; Stop 11/25/16 at 04:38; Status DC Info (Do NOT chart on this entry -- for MONITORING) 1 each PRN DAILY PRN MC SEE COMMENTS; Start 11/25/16 at 05:00; Stop 11/27/16 at 04:59; Status DC Sodium Chloride 1,000 ml @ 2,790 mls/hr Q22M IV ; Start 11/25/16 at 06:15; Stop 11/25/16 at 07:14; Status DC Ondansetron HCl (Zofran) 4 mg PRN Q8HRS PRN IV NAUSEA/VOMITING; Start 11/25/16 at 06:15; Stop 11/25/16 at 09:40; Status DC Morphine Sulfate 4 mg PRN Q2HR PRN IV PAIN Last administered on 11/25/16 17:47 ; Start 11/25/16 at 06:15; Stop 11/26/16 at 06:14; Status DC Acetaminophen (Tylenol) 650 mg PRN Q4HRS PRN PO FEVER Last administered on 11/25 07:48; Start 11/25/16 at 06:15; Stop 11/26/16 at 06:14; Status DC Multivitamins 10 ml/Folic Acid 1 mg/Thiamine HCl 100 mg/Sodium Chloride 1,011.2 ml @ 1,000 mls/ hr 1X ONCE IV Last administered on 11/25/16 06:20; Start at 06:30; Stop 11/25/16 at 07:30; Status DC Ondansetron HCl (Zofran) 4 mg PRN Q6HRS PRN IV NAUSEA/VOMITING; Start 11/25/16 at 09:37; Stop 11/26/16 at 09:36; Status DC Loperamide HCl (Imodium) 2 mg PRN Q15MIN PRN PO DIARRHEA; Start 11/25/16 at 09: 45 Levofloxacin/ Dextrose 100 ml @ 100 mls/hr Q24H IV Last administered on 09:12; Start 11/25/16 at 10:00 Permethrin (Elimite) 1 malik DAILY TP ; Start 11/26/16 at 09:00; Status UNV Prednisone (Prednisone) 40 mg DAILY PO Last administered on 11/27/16 09:06; Start 11/25/16 at 10:00 Non-Formulary Medication 118 ml 1X TP ; Start 11/25/16 at 09:45; Status UNV Sodium Chloride 1,000 ml @ 125 mls/hr Q8H IV Last administered on 11/27/16 09 :06; Start 11/25/16 at 09:45 Sodium Chloride 1,000 ml @ 1,000 mls/hr 1X ONCE IV Last administered on 15:05; Start 11/25/16 at 15:00; Stop 11/25/16 at 15:59; Status DC Potassium Chloride 100 ml @ 100 mls/hr Q1H IV Last administered on 11/26/16 00:38; Start 11/25/16 at 16:00; Stop 11/25/16 at 19:59; Status DC Norepinephrine Bitartrate 250 ml @ 0 mls/hr CONT PRN IV SEE I/O RECORD; Start 11/25/16 at 15:00 Prochlorperazine Edisylate (Compazine) 10 mg PRN Q6HRS PRN IV NAUSEA/VOMITING; Start 11/25/16 at 15:15 Lorazepam (Ativan) 2 mg PRN Q4HRS PRN IV ANXIETY / AGITATION Last administered on 11/26/16 21:21; Start 11/25/16 at 17:15 Hydromorphone HCl (Dilaudid) 0.4 mg PRN Q4HRS PRN IVP PAIN Last administered on 11/26/16 23:57; Start 11/25/16 at 17:15 Fentanyl Citrate (Fentanyl 2ml Vial) 25 mcg PRN Q2HR PRN IV PAIN; Start at 17:15 Lorazepam (Ativan) 2 mg STK-MED ONCE .ROUTE ; Start 11/25/16 at 17:30; Stop at 18:28; Status DC Piperacillin Sod/ Tazobactam Sod 3.375 gm/Sodium Chloride 50 ml @ 100 mls/hr Q6HRS IV Last administered on 11/27/16 05:36; Start 11/25/16 at 20:00 Metronidazole 100 ml @ 100 mls/hr Q8HRS IV Last administered on 11/27/16 07: 04; Start 11/25/16 at 22:00 Alprazolam (Xanax) 1 mg PRN Q4HRS PRN PO ANXIETY / AGITATION Last administered on 11/26/16 21:21; Start 11/25/16 at 21:15 Diazepam (Valium) 5 mg PRN TID PRN IV WITHDRAWAL IRRITABILITY; Start 11/25/16 at 21:15 Haloperidol Lactate (Haldol) 5 mg PRN Q4HRS PRN IM AGITATION; Start 11/25/16 at 21:15 Ziprasidone (Geodon Im) 10 mg 1X ONCE IM ; Start 11/25/16 at 21:30; Stop at 21:31; Status Cancel Ziprasidone (Geodon Im) 10 mg PRN 1X PRN IM ANXIETY / AGITATION; Start at 22:30 Iron Sucrose 500 mg/Sodium Chloride 275 ml @ 78.571 mls/ hr DAILY IV Last administered on 11/27/16 09:59; Start 11/26/16 at 10:30; Stop 11/27/16 at 12:29 Iron Sucrose 500 mg/Sodium Chloride 275 ml @ 78.571 mls/ hr 1X ONCE IV ; Start 11/27/16 at 09:30; Stop 11/27/16 at 12:59; Status UNV Nicotine (Nicoderm Cq 21mg) 1 patch DAILY TD Last administered on 11/27/16 09: 06; Start 11/26/16 at 10:00 Vancomycin HCl (Vanco Per Pharmacy) 1 each PRN DAILY PRN MC SEE COMMENTS Last administered on 11/27/16 11:04; Start 11/26/16 at 15:15 Vancomycin HCl 1.75 gm/Sodium Chloride 500 ml @ 250 mls/hr 1X ONCE IV Last administered on 11/26/16 17:19; Start 11/26/16 at 16:00; Stop 11/26/16 at 17:59 ; Status DC Vancomycin HCl 1 gm/Sodium Chloride 250 ml @ 250 mls/hr Q12H IV Last administered on 11/27/16 06:11; Start 11/27/16 at 06:00 Vancomycin HCl 1 each 1X ONCE MC ; Start 11/28/16 at 05:30; Stop 11/28/16 at 05 :31 Active Scripts Active Clobex (Clobetasol Propionate) 118 Ml Shampoo 118 Ml TP 1X Prednisone 20 Mg Tablet 40 Mg PO DAILY Permethrin 60 Gm Cream..g. 1 Malik TP ONCE Prednisone 20 Mg Tablet 40 Mg PO DAILY Augmentin 875-125 Tablet (Amoxicillin/Potassium Clav) 1 Each Tablet 1 Tab PO BID Vitals/I & O Vital Sign - Last 24 Hours 11/26/16 11/26/16 11/26/16 11/26/16 12:00 12:00 13:00 13:20 Temp 98.7 98.7 Pulse 88 94 Resp 19 21 24 B/P (MAP) 120/71 (87) 121/71 (88) Pulse Ox 98 98 98 O2 Delivery Room Air Room Air Room Air Room Air 11/26/16 11/26/16 11/26/16 11/26/16 14:00 15:00 16:00 16:00 Pulse 102 114 84 Resp 17 B/P (MAP) 106/59 (75) 132/81 (98) 117/68 (84) Pulse Ox 98 98 99 O2 Delivery Room Air Room Air Room Air Room Air 11/26/16 11/26/16 11/26/16 11/26/16 17:00 18:00 19:00 20:00 Temp 98.7 98.7 Pulse 94 106 100 Resp 17 17 11 B/P (MAP) 118/69 (85) 117/68 (84) 124/72 (89) Pulse Ox 98 96 91 O2 Delivery Room Air Room Air Room Air Room Air 11/26/16 11/26/16 11/26/16 11/26/16 20:08 21:00 22:00 23:00 Temp 99.7 99.7 Pulse 103 97 106 122 Resp 16 23 B/P (MAP) 119/70 (86) 115/71 (86) 130/72 (91) 114/61 (78) Pulse Ox 95 95 98 94 O2 Delivery Room Air Room Air Nasal Cannula Nasal Cannula O2 Flow Rate 2.0 2.0 11/26/16 11/27/16 11/27/16 11/27/16 23:57 00:00 00:00 00:27 Pulse 118 Resp 32 20 18 B/P (MAP) 100/55 (70) Pulse Ox 97 96 96 O2 Delivery Nasal Cannula Nasal Cannula Nasal Cannula Nasal Cannula O2 Flow Rate 2.0 2.0 2.0 2.0 11/27/16 11/27/16 11/27/16 11/27/16 01:00 02:00 03:00 04:00 Pulse 126 122 112 108 Resp 21 19 27 20 B/P (MAP) 104/49 (67) 113/57 (75) 108/72 (84) 114/63 (80) Pulse Ox 95 96 95 98 O2 Delivery Nasal Cannula Nasal Cannula Room Air Room Air O2 Flow Rate 2.0 2.0 11/27/16 11/27/16 11/27/16 11/27/16 04:00 05:00 06:00 07:00 Pulse 114 114 90 Resp 20 23 21 B/P (MAP) 112/63 (79) 117/59 (78) 102/61 (75) Pulse Ox 97 99 96 O2 Delivery Nasal Cannula Room Air Room Air Room Air O2 Flow Rate 2.0 11/27/16 11/27/16 11/27/16 11/27/16 08:00 08:00 09:00 10:00 Temp 98.9 98.9 Pulse 104 90 104 Resp 24 14 24 B/P (MAP) 109/53 (71) 104/31 (55) 106/65 (79) Pulse Ox 94 95 97 O2 Delivery Room Air Room Air Room Air Room Air Intake and Output 11/26/16 11/26/16 11/27/16 15:00 23:00 07:00 Intake Total 750 ml 2533.31 ml 2367.1 ml Output Total 800 ml 1900 ml 1900 ml Balance -50 ml 633.31 ml 467.1 ml NACHO BERNAL III DO Nov 27, 2016 11:16
[2016-11-28] MEDS: IV NORMAL SALINE 1000ML BAG 1,000 ML IV SCH ×2 (03:08→10:24)
[2016-11-28 03:20] VITALS: BP 124/79
[2016-11-28] MEDS: PIPERACILLIN/TAZOBACTAM 3.375 GM in IV NORMAL SALINE 50ML 50 ML IV SCH (05:44)
[2016-11-28] MEDS: VANCOMYCIN 1 GM in IV NORMAL SALINE 250ML 250 ML IV SCH (05:45)
[2016-11-28] MEDS ORDERED: VANCOMYCIN 1.25 GM in IV NORMAL SALINE 250ML 250 ML IV SCH (06:30)
[2016-11-28] MEDS: VANCOMYCIN PER PHARMACY MC PRN (06:39)
[2016-11-28 07:00] VITALS: BP 111/64
--- NOTE | 2016-11-28 09:13 | PDOC ---
Infectious Disease Note Subjective Subjective States ok and wants to go home ROS ROS GEN: Denies fevers, chills, sweats HEENT: Denies blurred vision, sore throat CV: Denies chest pain RESP: Denies shortness of air, cough GI: Denies n/v/d NEURO: Denies confusion, dizziness MSK: Denies weakness, joint pain/swelling Vital Sign Vital Signs Vital Signs Date Time Temp Pulse Resp B/P (MAP) Pulse Ox O2 Delivery O2 Flow Rate FiO2 11/28/16 07:00 98.1 82 18 111/64 (80) 94 Room Air 98.1 Physical Exam PHYSICAL EXAM GENERAL: In bed, NAD, more cooperative but still keeps eyes close when talking and fidgits HEENT: Oral cavity dry, poor dentition NECK: Supple LUNGS: Clear anteriorly, nonlabored HEART: S1 and S2 ABDOMEN: Soft, NT to light palpation EXTREMITIES: no cyanosis or edema. SKIN: No rash NEUROLOGIC: More alert RUE-PICC. clean Labs Lab Laboratory Tests Test 11/27/16 14:00 11/28/16 03:10 11/28/16 05:40 Clostridium difficile Toxin (PCR) Negative (Negative) Vancomycin Level Trough 10.2 mcg/mL (10.0-20.0) 7.8 mcg/mL (10.0-20.0) Vancomycin Last Dose Date 11/27/16 11/27/16 Vancomycin Last Dose Time 1800 0600 Objective Assessment Septic shock -better Acute Encephalopathy - improving Leukopenia, now leukocytosis - on Prednisone. better Anion gap metabolic acidosis. Acute abdomen - better Dehydration. Gastroenteritis.- diarrhea better and C-diff neg Lower back pain. History of methamphetamine abuse and intermediate time. ? Withdrawl Schizophrenia/Bipolar h/o breast cancer Plan Plan of Care Discont Zosyn & Flagyl Cont Levaquin but po/Vanc IV for now but wean soon Steroids f/u labs and cultures Supportive care ÁLVARO WILLIAM MD Nov 28, 2016 09:13
[2016-11-28 09:22] LABS: CREATININE 0.7 mg/dL (0.6-1.0); GFR 92.7; POTASSIUM 3.2 mmol/L (3.5-5.1)
[2016-11-28 09:25] LABS: BASO % 0 % (0-3); EOS % 1 % (0-3); HEMATOCRIT 24.6 % (36.0-47.0); HEMOGLOBIN 7.6 g/dL (12.0-15.5); LYMPH # 2.5 x10^3/uL (1.0-4.8); LYMPH % 15 % (24-48); MEAN CORPUSCULAR HEMOGLOBIN 23 pg (25-35); MEAN CORPUSCULAR HGB CONC 31 g/dL (31-37); MEAN CORPUSCULAR VOLUME 73 fL (79-100); MONO % 4 % (0-9); NEUT % 79 % (31-73); PLATELET COUNT 97 x10^3/uL (140-400); RED BLOOD COUNT 3.39 x10^6/uL (3.50-5.40); RED CELL DISTRIBUTION WIDTH 17.8 % (11.5-14.5); WHITE BLOOD COUNT 16.5 x10^3/uL (4.0-11.0)
[2016-11-28] MEDS: NICOTINE 21MG PATCH. TD SCH (09:42)
[2016-11-28] MEDS: predniSONE 20 MG TABLET PO SCH (09:42)
[2016-11-28] MEDS ORDERED: POTASSIUM CHLORIDE 20 MEQ TABLET.ER. PO ONE (10:00)
[2016-11-28] MEDS ORDERED: HYDROCORTISONE 10 MG TABLET PO SCH ×4 (10:00→21:00)
[2016-11-28 11:00] VITALS: BP 120/76
[2016-11-28] MEDS ORDERED: OXYC-323 PO (14:31)
[2016-11-28] MEDS ORDERED: LEVO500T59 PO (14:31)
--- NOTE | 2016-11-28 14:36 | PDOC3 ---
Discharge Summary Visit Information Date of Admission: Nov 25, 2016 Date of Discharge: Nov 28, 2016 Admitting Diagnosis Comment: Assessment/Plan 1. HYpotensive shock , recalcitrant to IVF\ 2. Diarhea,. GI loss 3. Severe SEpsis with organ dysfcn 4. NEutropenic, hx breast CA unknown stage 5. GAstrienteritis clinically and on CT 6. VAg bleeding with JUNIOR 7. Fevers _ Tmax 102 8. Bipolar and schiz by patient account\ 9. Sinus tachycardia, Final Diagnosis Problems Medical Problems: (1) Abdominal pain Status: Acute (2) Dehydration Status: Acute (3) Fever Status: Acute (4) Lower back pain Status: Acute (5) Methamphetamine abuse Status: Acute (6) Nausea vomiting and diarrhea Status: Acute Brief Hospital Course Allergies Allergies Coded Allergies Type Severity Reaction Last Updated Verified No Known Drug Allergies 07/03/13 No Vital Signs Vital Signs Date Time Temp Pulse Resp B/P (MAP) Pulse Ox O2 Delivery O2 Flow Rate FiO2 11/28/16 11:00 98.3 98 20 120/76 (91) 94 Room Air 98.3 11/28/16 08:00 2.0 Lab Results Laboratory Tests Test 11/27/16 04:20 11/27/16 14:00 11/28/16 03:10 11/28/16 05:40 White Blood Count 25.2 x10^3/uL (4.0-11.0) 16.5 x10^3/uL (4.0-11.0) Red Blood Count 3.50 x10^6/uL (3.50-5.40) 3.39 x10^6/uL (3.50-5.40) Hemoglobin 7.9 g/dL (12.0-15.5) 7.6 g/dL (12.0-15.5) Hematocrit 25.2 % (36.0-47.0) 24.6 % (36.0-47.0) Mean Corpuscular Volume 72 fL (79-100) 73 fL (79-100) Mean Corpuscular Hemoglobin 23 pg (25-35) 23 pg (25-35) Mean Corpuscular Hemoglobin Concent 31 g/dL (31-37) 31 g/dL (31-37) Red Cell Distribution Width 17.7 % (11.5-14.5) 17.8 % (11.5-14.5) Platelet Count 87 x10^3/uL (140-400) 97 x10^3/uL (140-400) Neutrophils (%) (Auto) 86 % (31-73) 79 % (31-73) Lymphocytes (%) (Auto) 9 % (24-48) 15 % (24-48) Monocytes (%) (Auto) 5 % (0-9) 4 % (0-9) Eosinophils (%) (Auto) 1 % (0-3) 1 % (0-3) Basophils (%) (Auto) 0 % (0-3) 0 % (0-3) Neutrophils # (Auto) 21.6 x10^3uL (1.8-7.7) 13.1 x10^3uL (1.8-7.7) Lymphocytes # (Auto) 2.2 x10^3/uL (1.0-4.8) 2.5 x10^3/uL (1.0-4.8) Monocytes # (Auto) 1.2 x10^3/uL (0.0-1.1) 0.6 x10^3/uL (0.0-1.1) Eosinophils # (Auto) 0.1 x10^3/uL (0.0-0.7) 0.2 x10^3/uL (0.0-0.7) Basophils # (Auto) 0.0 x10^3/uL (0.0-0.2) 0.0 x10^3/uL (0.0-0.2) Segmented Neutrophils % 80 % (35-66) Band Neutrophils % 14 % (0-9) Lymphocytes % 5 % (24-48) Eosinophils % 1 % (0-5) Toxic Vacuolation Slight Platelet Estimate Decreased (ADEQUATE) Hypochromasia Mod Anisocytosis Slight Microcytosis Slight Clostridium difficile Toxin (PCR) Negative (Negative) Vancomycin Level Trough 10.2 mcg/mL (10.0-20.0) 7.8 mcg/mL (10.0-20.0) Vancomycin Last Dose Date 11/27/16 11/27/16 Vancomycin Last Dose Time 1800 0600 Sodium Level 145 mmol/L (136-145) Potassium Level 3.2 mmol/L (3.5-5.1) Chloride Level 111 mmol/L (98-107) Carbon Dioxide Level 24 mmol/L (21-32) Anion Gap 10 (6-14) Blood Urea Nitrogen 4 mg/dL (7-20) Creatinine 0.7 mg/dL (0.6-1.0) Estimated GFR (Cockcroft-Gault) 92.7 Glucose Level 82 mg/dL (70-99) Calcium Level 8.0 mg/dL (8.5-10.1) Laboratory Tests Test 11/28/16 03:10 11/28/16 05:40 Vancomycin Level Trough 10.2 mcg/mL (10.0-20.0) 7.8 mcg/mL (10.0-20.0) Vancomycin Last Dose Date 11/27/16 11/27/16 Vancomycin Last Dose Time 1800 0600 White Blood Count 16.5 x10^3/uL (4.0-11.0) Red Blood Count 3.39 x10^6/uL (3.50-5.40) Hemoglobin 7.6 g/dL (12.0-15.5) Hematocrit 24.6 % (36.0-47.0) Mean Corpuscular Volume 73 fL (79-100) Mean Corpuscular Hemoglobin 23 pg (25-35) Mean Corpuscular Hemoglobin Concent 31 g/dL (31-37) Red Cell Distribution Width 17.8 % (11.5-14.5) Platelet Count 97 x10^3/uL (140-400) Neutrophils (%) (Auto) 79 % (31-73) Lymphocytes (%) (Auto) 15 % (24-48) Monocytes (%) (Auto) 4 % (0-9) Eosinophils (%) (Auto) 1 % (0-3) Basophils (%) (Auto) 0 % (0-3) Neutrophils # (Auto) 13.1 x10^3uL (1.8-7.7) Lymphocytes # (Auto) 2.5 x10^3/uL (1.0-4.8) Monocytes # (Auto) 0.6 x10^3/uL (0.0-1.1) Eosinophils # (Auto) 0.2 x10^3/uL (0.0-0.7) Basophils # (Auto) 0.0 x10^3/uL (0.0-0.2) Sodium Level 145 mmol/L (136-145) Potassium Level 3.2 mmol/L (3.5-5.1) Chloride Level 111 mmol/L (98-107) Carbon Dioxide Level 24 mmol/L (21-32) Anion Gap 10 (6-14) Blood Urea Nitrogen 4 mg/dL (7-20) Creatinine 0.7 mg/dL (0.6-1.0) Estimated GFR (Cockcroft-Gault) 92.7 Glucose Level 82 mg/dL (70-99) Calcium Level 8.0 mg/dL (8.5-10.1) Brief Hospital Course Ms. Matamoros is a 41 old [sex] who presented with [ ]hypotension, diarrhea, ITZEL, I needed to transfer to ICU bec of hypotension recalcitrant to IVF. Did check cortisol levels < 1.1 - I did strart PO hydrocort, COurse remarkable for initially neutropenia, then WBC jumped to 40s the next day, heme onc consulted, Hx breast CA, unknown status but that was not an active issue/complaint, CO managed with ID. Neg BC, Now being dcd on PO levaquin, ALso microcytic anemia with heavy vag bleeding, OB consulted, advised ferrous sulfate (JUNIOR indices) and ff up as OP once severe sepsis needing pressors has resolved, Wants to go home, Used to narcs, hx amphetamine use, had some confusion, agitation in ICU needing antipsychotics/sedatives. Pt seen and examined DispO; home RX done See MAR Time 40 mins, complicated 4 day course Discharge Information Condition at Discharge: Improved, Stable Disposition/Orders: D/C to Home Scheduled Amoxicillin/Potassium Clav (Augmentin 875-125 Tablet), 1 TAB PO BID Clobetasol Propionate (Clobex), 118 ML TP 1X Permethrin (Permethrin), 1 ERICA TP ONCE Prednisone (Prednisone), 40 MG PO DAILY Prednisone (Prednisone), 40 MG PO DAILY SAROJ GUZMAN MD Nov 28, 2016 14:36
[2016-11-28 15:00] VITALS: BP 126/68
[2016-11-29 01:14] LABS: HEP A IGM ABDY Negative (Negative); HEP B SURFACE ABDY Non Reactive (.)
== END 2016-11-28 16:45 | disposition home or self-care (01) | DRG 871 ==
LOC: ER 01:25 → 6 SOUTH 06:15 → 1 WEST ICU 15:29 → 6 SOUTH 11-27 14:22
PROVIDERS: ADMIT Internal Medicine; ATTEND Internal Medicine
DX: A41.9 Sepsis, unspecified organism (principal); R65.21 Severe sepsis with septic shock; G93.40 Encephalopathy, unspecified; D70.9 Neutropenia, unspecified; N17.9 Acute kidney failure, unspecified; D69.6 Thrombocytopenia, unspecified; E86.0 Dehydration; F15.23 Other stimulant dependence with withdrawal; F20.9 Schizophrenia, unspecified; D50.0 Iron deficiency anemia secondary to blood loss (chronic); F17.210 Nicotine dependence, cigarettes, uncomplicated; F31.9 Bipolar disorder, unspecified; F41.9 Anxiety disorder, unspecified; J45.909 Unspecified asthma, uncomplicated; I25.10 Atherosclerotic heart disease of native coronary artery without angina pectoris; K21.9 Gastro-esophageal reflux disease without esophagitis; K52.9 Noninfective gastroenteritis and colitis, unspecified; Z82.5 Family history of asthma and other chronic lower respiratory diseases; Z85.3 Personal history of malignant neoplasm of breast; Z87.11 Personal history of peptic ulcer disease
CPT/HCPCS: 36415; 36569; 71010; 74177; 80048; 80053; 80074; 80202; 80307; 81001; 81025; 82533; 83540; 83550; 83605; 83690; 84145; 84443; 85007; 85025; 86140; 86644; 86645; 86701; 86702; 86703; 86706; 87040; 87324; 87535; 87641; 96361; 96365; 96375; G0480; J0690; J1170; J1756; J1885; J1956; J2060; J2270; J2405; J2543; J3370; J3480; J3490; J7030; J7040; J7050; J7512; Q9967; 99285-25; G0479

== ENCOUNTER 2017-05-27 15:16 | Emergency (ER) | payer SELFPAY ==
[2017-05-27] MEDS: IV NORMAL SALINE 1000ML BAG 1,000 ML IV ×2 (17:13)
[2017-05-27] MEDS: ONDANSETRON PF 4 MG/2 ML VIAL. IV ×2 (17:13)
[2017-05-27] MEDS: fentaNYL PF VIAL 100 MCG/2 ML VIAL IV ×2 (17:14)
[2017-05-27 17:22] LABS: HEMATOCRIT 40.3 % (36.0-47.0); HEMOGLOBIN 13.7 g/dL (12.0-15.5); MEAN CORPUSCULAR HEMOGLOBIN 28 pg (25-35); MEAN CORPUSCULAR HGB CONC 34 g/dL (31-37); MEAN CORPUSCULAR VOLUME 83 fL (79-100); PLATELET COUNT 187 x10^3/uL (140-400); RED BLOOD COUNT 4.84 x10^6/uL (3.50-5.40); RED CELL DISTRIBUTION WIDTH 15.2 % (11.5-14.5); WHITE BLOOD COUNT 6.6 x10^3/uL (4.0-11.0)
[2017-05-27 17:23] LABS: BASO % 0 % (0-3); EOS % 0 % (0-3); LYMPH # 0.4 x10^3/uL (1.0-4.8); LYMPH % 6 % (24-48); MONO % 0 % (0-9); NEUT # 6.2 x10^3uL (1.8-7.7); NEUT % 94 % (31-73)
[2017-05-27 17:30] LABS: ADD MAN DIFF? YES
[2017-05-27 17:31] LABS: ANION GAP 13 (6-14); BLOOD UREA NITROGEN 13 mg/dL (7-20); BUN/CREATININE RATIO 16 (6-20); CALCIUM 8.9 mg/dL (8.5-10.1); CARBON DIOXIDE 24 mmol/L (21-32); CHLORIDE 99 mmol/L (98-107); CREATININE 0.8 mg/dL (0.6-1.0); GFR 79.4; GLUCOSE 95 mg/dL (70-99); POTASSIUM 3.5 mmol/L (3.5-5.1); SODIUM 136 mmol/L (136-145)
[2017-05-27 17:36] LABS: ALBUMIN 3.3 g/dL (3.4-5.0); ALBUMIN/GLOBULIN RATIO 0.8 (1.0-1.7); ALK PHOS 85 U/L (46-116); ALT (SGPT) 22 U/L (14-59); AST (SGOT) 20 U/L (15-37); LIPASE 116 U/L (73-393); TOTAL BILIRUBIN 0.6 mg/dL (0.2-1.0); TOTAL PROTEIN 7.6 g/dL (6.4-8.2)
[2017-05-27 17:43] LABS: % EOS 1 % (0-5); % LYMPHS 7 % (24-48); % SEGS 92 % (35-66)
[2017-05-27 17:46] LABS: PLT ESTIMATE ADEQUATE (ADEQUATE)
[2017-05-27 17:48] LABS: OVALOCYTES OCC; SCHISTOCYTES OCC
[2017-05-27 19:32] LABS: BARBITURATES NEG (NEG); BENZODIAZEPINES NEG (NEG); CANNABINOIDS NEG (NEG); COCAINE NEG (NEG); METHADONE NEG (NEG); OPIATES NEG (NEG); PHENCYCLIDINE NEG (NEG)
[2017-05-27 19:39] LABS: AMPHETAMINE/METHAMPHETAMINE POS (NEG); ETHANOL, URINE NEG (NEG)
== END 2017-05-27 20:38 | disposition home or self-care (01) ==
LOC: ER 15:16
DX: K52.9 Noninfective gastroenteritis and colitis, unspecified (principal); R51 Headache; J45.909 Unspecified asthma, uncomplicated; F31.9 Bipolar disorder, unspecified; K21.9 Gastro-esophageal reflux disease without esophagitis; F20.9 Schizophrenia, unspecified; F43.10 Post-traumatic stress disorder, unspecified; F12.10 Cannabis abuse, uncomplicated; F17.200 Nicotine dependence, unspecified, uncomplicated; F15.10 Other stimulant abuse, uncomplicated; Z98.51 Tubal ligation status
CPT/HCPCS: 36415; 80053; 80307; 83690; 85007; 85025; 96361; 96374; 96375; 99285-25; J2405; J3010; J7030